=== PATIENT | female | born 1980 | race Caucasian/White ===

== ENCOUNTER 2017-03-25 17:34 | Emergency (ER) | payer MEDICAID, SELFPAY | END 2017-03-25 19:06 | disposition home or self-care (01) | PROVIDERS: Emergency Provider Emergency Medicine; Family Provider Emergency Medicine; Visit Provider Emergency Medicine | DX: G43.009 Migraine without aura, not intractable, without status migrainosus (principal); J01.10 Acute frontal sinusitis, unspecified; F17.210 Nicotine dependence, cigarettes, uncomplicated; D89.89 Other specified disorders involving the immune mechanism, not elsewhere classified; Z88.5 Allergy status to narcotic agent; Z88.2 Allergy status to sulfonamides; Z88.8 Allergy status to other drugs, medicaments and biological substances; Z79.899 Other long term (current) drug therapy | CPT/HCPCS: 96372; 99283 ==

== ENCOUNTER 2017-07-23 08:26 | Outpatient (RCR) | payer OTHER, MEDICAID, SELFPAY ==
--- NOTE | 2017-07-23 09:27 | HMH.PTOPEV ---
Rehab Outpatient Evaluation Rehab OP Evaluation Start: 07/23/17 09:15 Freq: Status: Active Protocol: Document 07/23/17 09:15 JEREMIAH (Rec: 07/23/17 09:27 JEREMIAH [id number]) Electronically Signed By Luis Durham, PT 07/23/17 09:15 Outpatient Therapy Subjective History Subjective History Pt presents with h/o chronic LBP and B hip pain for 5-10yrs , with exacerbation over the last 12-18 months. Pt reports 'very low' LBP that radiates into L glut area, and into R groin area. Pt also reports radicular s/s from L glut down posterior thigh to knee, and R groin s/s to anterior thigh/ knee area intermittently. Chief Complaint Pain Stiff Weakness Symptom Type Ache Throb Sharp Dull Symptoms Relieved By Rest/Positioning Heat Symptoms Aggravated By Sitting Standing Bending/Stooping Physical Activity Twisting Walking Prior Functional Limitations Lifting Housework Standing Sitting Walking Bending/Stooping Current Functional Limitations Lifting Housework Standing Sitting Walking Bending/Stooping Symptom Description Constant but Variable Level of pain today (0-10) 3 Pain scale - at its best (0-10) 3 Pain scale - at its worst (0-10) 8 Lumbopelvic Eval Posture Thoracic Spine Posture Standing Position Neutral Lumbar Spine Posture Standing Position Increased Lordosis Assistive device Assistive Devices None / NA Palapation tenderness bilateral thoracic spinal tenderness No lumbar spinal tenderness Yes: 1/4 paraspinal tenderness Yes: 1/4 buttock tenderness Yes: 3/4 tenderness over symphysis pubis No Accessory Movement T-spine Vertebrae Accessory Movements [facility] [place] that Elicit Symptoms L5 bilateral Range of Motion
== END 2017-07-23 08:27 | disposition home or self-care (01) ==
LOC: PT 08:26
PROVIDERS: Family Provider Emergency Medicine; PCP Emergency Medicine; Visit Provider Orthopaedic Surgery
DX: M54.5 Low back pain (principal); M70.62 Trochanteric bursitis, left hip

== ENCOUNTER → 2017-08-02 12:03 | Outpatient (POV) | payer OTHER, MEDICAID, SELFPAY | PROVIDERS: Family Provider Emergency Medicine; PCP Emergency Medicine; Visit Provider Specialist | DX: R20.0 Anesthesia of skin (principal); R20.2 Paresthesia of skin | CPT/HCPCS: 95886; 95909 ==

== ENCOUNTER → 2019-06-13 13:41 | Outpatient (POV) | payer OTHER, SELFPAY | PROVIDERS: Visit Provider Dermatology | DX: Z00.00 Encounter for general adult medical examination without abnormal findings (principal) ==

== ENCOUNTER 2019-10-10 14:08 | Emergency (ER) | payer OTHER, SELFPAY ==
[2019-10-10 14:31] VITALS: BP 137/66; PULSE 74; RESP 18; TEMP 37; O2SAT 96; BMI 29.2
--- NOTE | 2019-10-10 14:32 | HMH.EDUTC ---
[facility] [place]ression: Strep [place] Disposition: Home, Self-Care Condition on Discharge: Good Instructions: Strep Throat, DI for Strep Throat Additional Instructions: Drink plenty of fluids. Take tylenol or ibuprofen for pain or fever. Take the medications as directed. Follow up with your regular doctor. GO TO THE ER FOR ANY WORSENING SYMPTOMS Throw your toothbrush away and get a new one tomorrow. Prescriptions: Amoxicillin [Amoxicillin 500mg Tab] 500 mg PO TID 10 Days #30 tab Transmission Status: Received by [facility] Referrals: Kendall Andersen MD [Primary Care Provider] - Forms: Work/School Release Time of Disposition: 14:41 Medical Decision Making - Medical Records Medical records reviewed: No: I reviewed the patient's medical records. - Donny Inquiry Pt receiving controlled substance: No Vital Signs: 10/10/19 14:31 10/10/19 14:45 Temperature 98.6 F 98.6 F Temperature Source Oral Pulse Rate 74 Pulse Rate [Right Brachial] 74 Respiratory Rate 18 18 Blood Pressure 137/66 Blood Pressure [Right Arm] 137/66 Blood Pressure Mean [Right Arm] 89 Blood Pressure Source [Right Arm] Automatic Cuff Blood Pressure Position [Right Arm] Sitting 02 Sat by Pulse Oximetry 96 Oxygen Delivery Method Room Air - Lab Data Lab results reviewed: Yes: I reviewed the patient's lab results. Lab Results 10/10/19 14:35: Strep Scn Rapid Clinic Positive [place] [facility] [place] - General Stated complaint: sore throat Time Seen by Provider: 10/10/19 14:32 - History of Present Illness Provider Complaint: She c/o sore throat and feeling bad since yesterday. She denies any documented fever, but she has been chilling. - Related Data Previous Rx's Medication Instructions Recorded Amoxicillin [Amoxicillin 500mg Tab] 500 mg PO TID 10 Days #30 tab 10/10/19 Allergies Allergy/AdvReac Type Severity Reaction Status Date / Time duloxetine [From CYMBALTA] Allergy Unknown Verified 11/30/17 07:39 hydroxychloroquine Allergy Unknown Verified 11/30/17 07:39 [From PLAQUENIL] morphine [MORPHINE] Allergy Unknown Verified 11/30/17 07:39 Sulfa (Sulfonamide Allergy Unknown Verified 11/30/17 07:39 Antibiotics) [SULFA (SULFONAMIDE ANTIBIOTICS)] [facility] History - Hepatitis A Screen Attestation statement:: This patient has been screened for Hepatitis A risk factors. I have reviewed the patient's past medical history: Yes Medical History: Reports:: Anxiety, Gastroesophageal Reflux Disease(GERD), Kidney Stones, Migraine Denies:: Gastrointestinal Bleed, Renal Disease, Ulcer Other Medical History: Reports: Fibromyalgia, Other. Denies: Unexplained Bleeding Comment: fibromyalgia,vit b def,colitis,cyst on ovary Laterality Cases: Bilateral: Tonsillectomy Other Surgeries: Yes: , Other Amputation: No Fractures: No - Social History Smoking Status: Current every day smoker Tobacco Type: cigarettes # Packs/Day (cigarettes): 1 Alcohol Intake: never Alcohol Intake Frequency:: holidays/special occasions only Substance Use Type: denies use Occupational Status: employed - Psychiatric History Pschychiatric History:: Reports:: Anxiety Family Hx:: No significant family history ROS Obtained: Yes All systems reviewed & no additional complaints - Constitutional Constitutional: Reports chills, Denies fever(s), Reports poor appetite, Reports malaise - Eyes Eyes: Denies eye discharge - ENT Ears, Nose, Mouth, and Throat: Reports as per HPI - Cardiovascular Cardiovascular: Denies chest pain - Respiratory Respiratory: No chest congestion, No cough, No dyspnea, No coughing up blood, No stridor, No wheezing Physical Exam - General General appearance: alert, in no apparent distress - Head Head exam: atraumatic, normocephalic, normal inspection - Eye Eye exam: Present: normal appearance, PERRL, EOMI - ENT ENT exam: Present: normal oropharynx, m
[2019-10-10 14:39] LABS: UTC Strep Screen (Rapid) Positive (Negative)
[2019-10-10 14:45] VITALS: BP 137/66; PULSE 74; RESP 18; TEMP 37; O2SAT 96
== END 2019-10-10 14:48 | disposition home or self-care (01) ==
PROVIDERS: Emergency Provider Nurse Practitioner Family; PCP Emergency Medicine
DX: J02.0 Streptococcal pharyngitis (principal); F41.9 Anxiety disorder, unspecified; K21.9 Gastro-esophageal reflux disease without esophagitis; Z87.442 Personal history of urinary calculi; G43.709 Chronic migraine without aura, not intractable, without status migrainosus; F17.210 Nicotine dependence, cigarettes, uncomplicated; Z88.2 Allergy status to sulfonamides; Z88.5 Allergy status to narcotic agent; Z88.8 Allergy status to other drugs, medicaments and biological substances
CPT/HCPCS: 87880; 99201

== ENCOUNTER → 2019-12-28 11:44 | Outpatient (CLI) | payer OTHER, SELFPAY ==
--- NOTE | 2019-12-28 11:52 | XR_ITS ---
PROCEDURE: XR FOOT WT BEARING LT 3V CLINICAL INDICATION: pain COMPARISON: No exams were available for comparison FINDINGS: No fracture or dislocation. No lytic or blastic change. There is normal mineralization. The joint spaces are well-preserved. No significant degenerative/arthritic changes. No erosive changes evident. Other findings:None. IMPRESSION: No acute findings. Dictated by: Samson Sung MD 12/28/2019 13:45 Samson Sung MD in [place] 12/28/2019 13:45
--- NOTE | 2019-12-28 11:52 | XR_ITS ---
PROCEDURE: XR FOOT WT BEARING RT 3V CLINICAL INDICATION: pain COMPARISON: No exams were available for comparison FINDINGS: No fracture or dislocation. No lytic or blastic change. There is normal mineralization. The joint spaces are well-preserved. No significant degenerative/arthritic changes. No erosive changes evident. Other findings:None. IMPRESSION: No acute findings. Dictated by: Samson Sung MD 12/28/2019 13:45 Samson Sung MD in [place] 12/28/2019 13:45
== END ==
PROVIDERS: PCP Emergency Medicine; Visit Provider Podiatrist
DX: M79.672 Pain in left foot (principal); M79.671 Pain in right foot
CPT/HCPCS: 73630

== ENCOUNTER → 2020-01-02 16:25 | Outpatient (CLI) | payer OTHER, SELFPAY ==
[2020-01-02 17:18] LABS: Iron 45 ug/dL (37-170)
[2020-01-02 17:27] LABS: Total Iron Binding Capacity 371 ug/dL (265-497)
[2020-01-02 17:54] LABS: Ferritin 12.5 ng/ml (6.24-137)
== END ==
PROVIDERS: Visit Provider Specialist
DX: E83.10 Disorder of iron metabolism, unspecified (principal); M79.604 Pain in right leg; M79.605 Pain in left leg
CPT/HCPCS: 36415; 82728; 83540; 83550

== ENCOUNTER → 2020-01-15 08:33 | Outpatient (CLI) | payer OTHER, SELFPAY ==
--- NOTE | 2020-01-15 08:33 | MR_ITS ---
PROCEDURE: MR HEAD/BRAIN WO CON CLINICAL INDICATION: MS protocol MEMORY, BALANCE, AND CONCENTRATION ISSUES. HEADACHE. SYMPTOMS XYRS BUT HAS GOTTEN WORSE. PRIOR CT 03-21-17 COMPARISON: CT HDWO CT HEAD W/O CONTRAST from 03/21/2017 TECHNIQUE: Routine multiplanar multi echo sequences are performed without gadolinium enhancement. FINDINGS: No midline shift, mass effect, intracranial hemorrhage, or hydrocephalus. No evidence of acute infarction. The cerebellopontine angles, cerebellum, brainstem have an unremarkable appearance. No white matter lesions evident. The corpus callosum, pituitary, optic chiasm, and craniocervical junction have an unremarkable appearance. Additional MS sequences performed including sagittal FLAIR images and sagittal and axial 3D double inversion recovery images. No MS plaques identified. The upper cervical cord has an unremarkable appearance. No mastoid effusion or sinus air-fluid level. IMPRESSION: Negative MRI of the brain without contrast. No MRI evidence of multiple sclerosis. Dictated by: Samson Sung MD 01/16/2020 11:33 Samson Sung MD in [place] 01/16/2020 11:33
== END ==
PROVIDERS: PCP Emergency Medicine; Visit Provider Specialist
DX: G43.009 Migraine without aura, not intractable, without status migrainosus (principal); R41.3 Other amnesia; R42 Dizziness and giddiness; R47.89 Other speech disturbances
CPT/HCPCS: 70551

== ENCOUNTER → 2020-02-13 14:30 | Outpatient (CLI) | payer OTHER, SELFPAY ==
[2020-02-13 15:41] LABS: Basophils # 0.1 K/mm3 (0-0.2); Basophils % 0.9 % (0.1-2.0); Eosinophils # 0.4 K/mm3 (0.0-0.4); Eosinophils % 3.7 % (0.1-12.0); Hematocrit 41.6 % (37.0-47.0); Hemoglobin 13.9 g/dL (12.2-16.2); Lymphocytes # 3.5 K/mm3 (0.7-4.5); Lymphocytes % 29.2 % (10-50); Mean Corpuscular HGB Conc 33.3 g/dL (31.8-35.4); Mean Corpuscular Hemoglobin 32.6 pg (27.0-31.2); Mean Corpuscular Volume 97.7 fl (81-99); Mean Platelet Volume 7.6 fl (7.4-10.4); Monocytes # 0.5 K/mm3 (0.1-1.0); Monocytes % 4.5 % (1.7-9.3); Neutrophils # 7.3 K/mm3 (1.8-7.8); Neutrophils % 61.7 % (37.0-80.0); Platelet Count 405 K/mm3 (142-424); Red Blood Count 4.26 M/mm3 (4.20-5.40); Red Cell Distribution Width 13.1 % (11.5-17.5); White Blood Count 11.8 K/mm3 (4.8-10.8)
[2020-02-13 16:07] LABS: Chloride 103 mmol/L (98-107)
[2020-02-13 16:08] LABS: Potassium 4.4 mmoL/L (3.5-5.1); Sodium 138 mmol/L (136-145)
[2020-02-13 16:10] LABS: Alanine Aminotransferase 14 U/L (12-78); Anion Gap 14.4 mEq/L (5-15); Aspartate Amino Transferase 22 U/L (14-36); Blood Urea Nitrogen 11 mg/dl (7-17); Carbon Dioxide 25 mmol/L (22.0-30.0); Estimated Glomerular Filt Rate 112 ml/min (>60); GFR (African American) 135 ML/MIN (>60)
[2020-02-13 16:11] LABS: Albumin Level 4.6 g/dl (3.5-5.0); Albumin/Globulin Ratio 1.6 (1.1-1.8); Alkaline Phosphatase 57 U/L (38-126); Bilirubin,Total 0.2 mg/dl (0.2-1.3); Globulin 2.8 g/dL (1.3-3.2); Glucose 91 mg/dl (74-100); Total Protein,Serum 7.4 g/dl (6.3-8.2)
[2020-02-13 16:19] LABS: Erythrocyte Sedimentation Rate 15 mm/hr (0-20)
[2020-02-13 16:23] LABS: Intact Parathyroid Hormone 31.9 pg/mL (7.5-53.5)
[2020-02-13 16:42] LABS: Thyroid Stimulating Hormone 0.95 uIU/mL (0.465-4.68)
[2020-02-13 17:16] LABS: Vitamin B12 390 pg/mL (239-931)
[2020-02-13 17:17] LABS: Folate 7.91 ng/mL
[2020-02-15 11:47] LABS: Rapid Plasma Reagin Ab Titer Non Reactive (NonRea<1:1)
[2020-02-21 10:45] LABS: 1,25 Dihydroxy Vitamin D 29 pg/mL (.); 1,25-Dihydroxy, Vitamin D-2 <10 pg/mL (.); 1,25-Dihydroxy, Vitamin D-3 28 pg/mL (.)
== END ==
PROVIDERS: Visit Provider Nurse Practitioner Family
DX: G31.84 Mild cognitive impairment of uncertain or unknown etiology (principal); G25.81 Restless legs syndrome; R53.83 Other fatigue; Z68.29 Body mass index [BMI] 29.0-29.9, adult
CPT/HCPCS: 36415; 80053; 82607; 82652; 82746; 83970; 84443; 85025; 85651; 86592

== ENCOUNTER → 2020-05-20 08:21 | Outpatient (CLI) | payer OTHER, SELFPAY ==
[2020-05-20 09:37] LABS: Ferritin 19.4 ng/ml (6.24-137)
== END ==
PROVIDERS: Visit Provider Specialist
DX: E83.10 Disorder of iron metabolism, unspecified (principal)
CPT/HCPCS: 36415; 82728

== ENCOUNTER 2020-07-02 17:30 | Outpatient (RCR) | payer OTHER, SELFPAY ==
--- NOTE | 2020-06-04 18:04 | HMH.PTOPEV ---
Thank you for letting me participate in the care of this patient. PT Outpatient Evaluation Rehab PT Outpatient Evaluation Start: 06/04/20 17:34 Freq: Status: Active Protocol: Document 06/04/20 17:35 MARY JO (Rec: 06/04/20 18:04 PANDATAHIRA [id number]) Electronically Signed By Alfie Licea, PT 06/04/20 17:35 Outpatient Therapy Subjective History Subjective History This is the initial Physical Therapy evaluation for Donell Love. Pt is a 39 y/o female referred to PT for c/o chronic headaches. Pt reports daily chronic head aches for years . Pt reports most of her headaches occur in her [place] area but some are at the back of her head in suboccipital area. Pt does report her neck aches all the time especially at the cervicothoracic junction. Chief Complaint Pain Symptom Type Ache,Throb,Dull Symptoms Relieved By Rest/Positioning,OTC Meds Symptoms Aggravated By Physical Activity Prior Functional Limitations None Current Functional Limitations Driving Symptom Description Intermittent Level of pain today (0-10) 2 Pain scale - at its best (0-10) 0 Pain scale - at its worst (0-10) 5 Cervical Eval Palpation Cervical Muscles R Upper Trapezius,L Upper Trapezius Cervical/Thoracic Palpation Findings Trigger Point Posture Head/C-Spine Posture Sitting Position Flexed,C-Spine Flattened Passive Joint Mobility Cervical PIVM Dec: L C3/4 L C4/5 L C5/6 AROM Cervical Spine Extension Active Range of 40 Motion (degrees) Cervical Spine Flexion Active Range of 70 Motion (degrees) Cervical Spine Right Lateral Flexion 40 Active Range of Motion (degrees) Cervical Spine Left Lateral Flexion 40 Active Range of Motion (degrees) Cervical Spine Right Rotation Active 80 Range of Motion (degrees) Cervical Spine Left Rotation Active 80 Range of Motion (degrees) Special Test C-Spine Foraminal Compression (Spurling) Negative Left,Negative Right Test C-Spine Compression Test Negative Left,Negative Right Outpatient Therapy Assessment Impairments Problems/Impairmments Palpation Tenderness,Impaired Strength,Impaired Lifting, Impaired Household Care, Impaired Recreational
== END 2020-07-02 17:35 | disposition home or self-care (01) ==
LOC: PT 17:30
PROVIDERS: PCP Emergency Medicine; Visit Provider Specialist
DX: R51.9 Headache, unspecified (principal); G89.29 Other chronic pain
CPT/HCPCS: 20560; 97010; 97012; 97014; 97110; 97140; 97163; 97164; G0283

== ENCOUNTER 2020-07-04 16:44 | Emergency (ER) | payer OTHER, SELFPAY ==
[2020-07-04 17:05] VITALS: BP 130/76; PULSE 64; RESP 19; TEMP 36.6; O2SAT 99; BMI 27.8
--- NOTE | 2020-07-04 17:25 | HMH.EDUTC ---
[facility] [place] Clinical Impression: Otitis media Qualifiers: Otitis media type: unspecified Laterality: left Qualified Code(s): H66.92 - Otitis media, unspecified, left ear Disposition: Home, Self-Care Condition on Discharge: Good Instructions: Middle Ear Infection, Amoxicillin Additional Instructions: *Monitor Temp, Over the counter Motrin or Tylenol as directed/as needed Tylenol every 4 hours and Motrin every 6 hours (as long as your family doctor has told you that you can take it) for fever or pain. and straight to ER if unable to lower temp less than 101.0 after medication given *Warm salt water gargles may help to soothe the throat *Throat Lozenges *Warm fluids like tea with honey may help to soothe the throat *Sleep elevated *Humidifier/Vaporizer Take medication as prescribed Follow up IMMEDIATELY for new or worsening symptoms or no Noticeable improvement over the next 48-72 hours. 911 for difficulty breathing or swallowing Prescriptions: Amoxicillin [Amoxicillin 875MG Tab] 875 mg PO Q12H #20 tab Transmission Status: Pending to [facility] Fluticasone Propionate [Flonase 50mcg nasal spray 16gm] 1 spr NS DAILY #1 bottle Transmission Status: Pending to [facility] Referrals: Kendall Andersen MD [Primary Care Provider] - As needed Time of Disposition: 17:33 Medical Decision Making - Donny Inquiry Pt receiving controlled substance: No Donny was queried for this patient: No Vital Signs: 07/04/20 17:05 Temperature 97.9 F Temperature Source Oral Pulse Rate [Right] 64 Respiratory Rate 19 Blood Pressure [Right Arm] 130/76 Blood Pressure Mean [Right Arm] 94 Blood Pressure Source [Right Arm] Automatic Cuff 02 Sat by Pulse Oximetry 99 Oxygen Delivery Method Room Air [facility] [place] - General Stated complaint: ears pain Time Seen by Provider: 07/04/20 17:25 Mode of Arrival: Family Vehicle Source of Information: Patient Description of Symptoms (Recalled from Triage Doc. by RN): Pt c/o ear pain. Pt reports R ear started hurting about 1.5 wk ago. Now, her left ear began to hurt. Pt reports she does have a h/o of allergies, does not take any prescribed or OTC meds at this time. Pt reports some sinus congestion a few days ago. HEENT Symptoms (Recalled from RN notes): Yes Resp Symptoms (Recalled from RN notes): No Skin Symptoms (Recalled from RN notes): No MS Symptoms (Recalled from RN notes): No Functional Status (Recalled from RN notes): na - History of Present Illness Provider Complaint: Patient state that she has been having pain burning and pressure like feeling in both ears for around 2 weeks States that she thought it was allergies and has been watching it States for the last couple of days the pain in her left ear has continued to get worse so she came in today to get it checked - Related Data Home Medications Medication Instructions Recorded Confirmed Tizanidine HCl [Tizanidine HCl 4 mg PO HS 07/04/20 07/04/20 2mg] Tramadol HCl [Tramadol 50mg 50 mg PO DIRECTED 07/04/20 07/04/20 Tab] Trazodone HCl 100 mg PO QHS 07/04/20 07/04/20 Previous Rx's Medication Instructions Recorded Amoxicillin [Amoxicillin 875MG 875 mg PO Q12H #20 tab 07/04/20 Tab] Fluticasone Propionate [Flonase 1 spr NS DAILY #1 bottle 07/04/20 50mcg nasal spray 16gm] Allergies Allergy/AdvReac Type Severity Reaction Status Date / Time duloxetine [From CYMBALTA] Allergy Unknown Verified 05/20/20 15:15 hydroxychloroquine Allergy Unknown Verified 05/20/20 15:15 [From PLAQUENIL] morphine [MORPHINE] Allergy Unknown Verified 05/20/20 15:15 Sulfa (Sulfonamide Allergy Unknown Verified 05/20/20 15:15 Antibiotics) [SULFA (SULFONAMIDE ANTIBIOTICS)] - Worker's Comp Is this a Worker's Comp case?: No [facility] History - Hepatitis A Screen Drug use history?: No High risk sexual behaviors?: No History of sexually transmitted infection?: No Currently employed?:
[2020-07-04 17:45] VITALS: BP 130/74; PULSE 64; RESP 19; TEMP 36.6; O2SAT 99
== END 2020-07-04 17:53 | disposition home or self-care (01) ==
PROVIDERS: Emergency Provider Nurse Practitioner; PCP Emergency Medicine
DX: H66.92 Otitis media, unspecified, left ear (principal); K21.9 Gastro-esophageal reflux disease without esophagitis; F41.8 Other specified anxiety disorders; M79.7 Fibromyalgia; Z87.442 Personal history of urinary calculi; F17.210 Nicotine dependence, cigarettes, uncomplicated; Z88.2 Allergy status to sulfonamides; Z88.5 Allergy status to narcotic agent
CPT/HCPCS: 99202; G0463

== ENCOUNTER 2020-07-29 17:46 | Emergency (ER) | payer OTHER, SELFPAY ==
[2020-07-29 18:41] VITALS: RESP 14; TEMP 37; O2SAT 99; BMI 27.4
--- NOTE | 2020-07-29 19:05 | HMH.EDUTC ---
[facility] [place] Disposition Clinical Impression: Acute bronchitis Qualifiers: Bronchitis organism: unspecified organism Qualified Code(s): J20.9 - Acute bronchitis, unspecified Disposition: Home, Self-Care Condition on Discharge: Good Instructions: DI for Acute Bronchitis Additional Instructions: Drink plenty of fluids. Take tylenol or ibuprofen for pain or fever. Take the medications as directed. Follow up with your regular doctor. GO TO THE ER FOR ANY WORSENING SYMPTOMS Don't start the oral steroids until tomorrow, since you had the shot here today. The cough medication (promethazine dm) will make you drowsy, so don't drive or operate heavy machinery after taking it. Prescriptions: Promethazine/Dextromethorphan [Promethazine-Dm Syrup] 5 ml PO Q6HP PRN #180 syrup PRN Reason: Cough Transmission Status: Received by [facility] methylPREDNISolone [Medrol] 4 mg PO DIRECTED 6 Days #21 tab.ds.pk Transmission Status: Received by [facility] Benzonatate [Tessalon Perle 100mg Cap] 100 mg PO TIDP PRN #30 cap PRN Reason: Cough Transmission Status: Received by [facility] Azithromycin [Z-Eliu 250mg Tab*] 250 mg PO UD DOSE PK #6 tab Transmission Status: Received by [facility] Referrals: Kendall Andersen MD [Primary Care Provider] - Forms: Work/School Release Time of Disposition: 19:10 Medical Decision Making - Medical Records Medical records reviewed: No: I reviewed the patient's medical records. - Donny Inquiry Pt receiving controlled substance: No Vital Signs: 07/29/20 18:41 07/29/20 19:27 Temperature 98.6 F 98.5 F Temperature Source Oral Oral Pulse Rate 88 Respiratory Rate 14 16 Blood Pressure 130/81 02 Sat by Pulse Oximetry 99 Oxygen Delivery Method Room Air Room Air Orders (Tests/Meds): ED MEDICATIONS Discontinued Medications Generic Name Dose Route Start Last Admin Trade Name Freq PRN Reason Stop Dose Admin Ceftriaxone Sodium 1 gm 07/29/20 19:04 07/29/20 19:16 Ceftriaxone 1gm Vial IM 07/29/20 19:05 1 gm ONCE ONE Administration Protocol Lidocaine HCl 0 ml 07/29/20 19:04 07/29/20 19:16 Lidocaine 1% 5ml Pf Vial IM 07/29/20 19:05 5 ml ONCE ONE Administration Methylprednisolone Sodium Succinate 125 mg 07/29/20 19:04 07/29/20 19:17 Methylprednisolone Sod Succ 125mg Vial IM 07/29/20 19:05 125 mg ONCE ONE Administration [facility] [place] HPI - General Stated complaint: cough,sore throat,SOB,Weakness Time Seen by Provider: 07/29/20 18:55 Mode of Arrival: Ambulatory Source of Information: Patient Limitations: No Limitations Description of Symptoms (Recalled from Triage Doc. by RN): cough, sore throat, congestion, weakness/fatigue HEENT Symptoms (Recalled from RN notes): Yes Resp Symptoms (Recalled from RN notes): Yes Skin Symptoms (Recalled from RN notes): No MS Symptoms (Recalled from RN notes): No Functional Status (Recalled from RN notes): na - History of Present Illness Provider Complaint: She states that for the past 2 days she has had a cough, chest congestion, chest tightness, and she has felt very tired. She denies shortness of breath. She denies any fever or chills. - Related Data Home Medications Medication Instructions Recorded Confirmed Tizanidine HCl [Tizanidine HCl 4 mg PO HS 07/04/20 07/04/20 2mg] Tramadol HCl [Tramadol 50mg 50 mg PO DIRECTED 07/04/20 07/04/20 Tab] Trazodone HCl 100 mg PO QHS 07/04/20 07/04/20 Previous Rx's Medication Instructions Recorded Amoxicillin [Amoxicillin 875MG 875 mg PO Q12H #20 tab 07/04/20 Tab] Fluticasone Propionate [Flonase 1 spr NS DAILY #1 bottle 07/04/20 50mcg nasal spray 16gm] Azithromycin [Z-Eliu 250mg Tab*] 250 mg PO UD DOSE PK #6 tab 07/29/20 Benzonatate [Tessalon Perle 100mg 100 mg PO TIDP PRN #30 cap 07/29/20 Cap] Promethazine/Dextromethorphan 5 ml PO Q6HP PRN #180 syrup 07/29/20 [Promethazine-Dm Syrup] methylPR
[2020-07-29 19:27] VITALS: BP 130/81; PULSE 88; RESP 16; TEMP 36.9; O2SAT 99
== END 2020-07-29 19:28 | disposition home or self-care (01) ==
PROVIDERS: Emergency Provider Nurse Practitioner Family; PCP Emergency Medicine
DX: Z20.822 Contact with and (suspected) exposure to COVID-19 (principal); J20.9 Acute bronchitis, unspecified; F41.8 Other specified anxiety disorders; K21.9 Gastro-esophageal reflux disease without esophagitis; M79.7 Fibromyalgia; F17.210 Nicotine dependence, cigarettes, uncomplicated; Z88.2 Allergy status to sulfonamides; Z88.5 Allergy status to narcotic agent; Z79.899 Other long term (current) drug therapy
CPT/HCPCS: 96372; 99202; G0463; U0003

== ENCOUNTER 2020-08-04 17:21 | Emergency (ER) | payer OTHER, SELFPAY ==
[2020-08-04 17:30] VITALS: BP 113/59; PULSE 78; RESP 17; TEMP 36.8; O2SAT 96; BMI 27.4
--- NOTE | 2020-08-04 17:32 | XR_ITS ---
PROCEDURE: XR CHEST 2V CLINICAL HISTORY: cough COMPARISON: No exams were available for comparison FINDINGS: The cardiomediastinal silhouette and pulmonary vascularity are within normal limits. The lungs are clear without infiltrates, suspicious nodules, or pleural effusions. No acute bony abnormalities. IMPRESSION: No acute findings. Dictated by: Samson Sung MD 08/05/2020 06:22 Samson Sung MD in [place] 08/05/2020 06:22
--- NOTE | 2020-08-04 17:36 | HMH.EDUTC ---
[facility] – [place] Disposition Clinical Impression: Pneumonia Qualifiers: Pneumonia type: due to unspecified organism Laterality: left Lung location: upper lobe of lung Qualified Code(s): J18.9 - Pneumonia, unspecified organism Disposition: Home, Self-Care Condition on Discharge: Good Instructions: DI for Pneumonia -- Adult Additional Instructions: Follow up if not improving Prescriptions: Guaifenesin/Dextromethorphan [Mucinex Dm ER 1,200-60 mg Tab] 1 tab PO BID 10 Days #20 tab Transmission Status: Received by [facility] Cefdinir [Omnicef 300mg Capsule] 300 mg PO BID #20 cap Transmission Status: Received by [facility] predniSONE [Prednisone 20mg Tab] 20 mg PO BID 5 Days #10 tab Transmission Status: Received by [facility] Albuterol Sulfate [Proventil-HFA 90mcg/puff Inh] 2 puffs IH QIDP PRN 30 Days #1 inh PRN Reason: Wheezing Transmission Status: Received by [facility] Referrals: Kendall Andersen MD [Primary Care Provider] - Time of Disposition: 20:12 Medical Decision Making - Medical Records Medical records reviewed: Yes: I reviewed the patient's medical records. - Donny Inquiry Pt receiving controlled substance: No Vital Signs: 08/04/20 17:30 08/04/20 17:37 Temperature 98.2 F 98.2 F Temperature Source Oral Pulse Rate 78 Pulse Rate [Left] 78 Respiratory Rate 17 17 Blood Pressure 113/59 L Blood Pressure [Right Arm] 113/59 L Blood Pressure Mean [Right Arm] 77 Blood Pressure Source [Right Arm] Automatic Cuff Blood Pressure Position [Right Arm] Sitting 02 Sat by Pulse Oximetry 96 Oxygen Delivery Method Room Air Orders (Tests/Meds): ED MEDICATIONS Discontinued Medications Generic Name Dose Route Start Last Admin Trade Name Freq PRN Reason Stop Dose Admin Albuterol Sulfate 2 puffs 08/04/20 18:11 08/04/20 18:28 Albuterol-Hfa 90mcg/Puff Inhaler 8gm IH 09/03/20 18:10 2 puffs Q4HP PRN Administration Shortness Of Breath Ceftriaxone Sodium 1 gm 08/04/20 18:09 08/04/20 18:27 Ceftriaxone 1gm Vial IM 08/04/20 18:10 1 gm ONCE ONE Administration Protocol Lidocaine HCl 0 ml 08/04/20 18:09 08/04/20 18:27 Lidocaine 1% 5ml Pf Vial IM 08/04/20 18:10 2.1 ml ONCE ONE Administration Methylprednisolone Sodium Succinate 125 mg 08/04/20 18:09 08/04/20 18:28 Methylprednisolone Sod Succ 125mg Vial IM 08/04/20 18:10 125 mg ONCE ONE Administration Miscellaneous 1 unit 08/04/20 18:11 08/04/20 18:28 Aerochamber/Optihaler MC 08/04/20 18:12 1 unit ONCE ONE Administration - Radiology Data #1 Image(s): Chest Image Reviewed: Yes I reviewed the patient's radiology image Preliminary Findings: Abnormal (ROSE infiltrate ) [facility] – [place] HPI - General Stated complaint: Cough,SOB,Weakness Time Seen by Provider: 08/04/20 17:37 Mode of Arrival: Ambulatory Source of Information: Patient Limitations: No Limitations Description of Symptoms (Recalled from Triage Doc. by RN): chest congestion and cough x1 week HEENT Symptoms (Recalled from RN notes): No Resp Symptoms (Recalled from RN notes): Yes Skin Symptoms (Recalled from RN notes): No MS Symptoms (Recalled from RN notes): No Functional Status (Recalled from RN notes): wnl - History of Present Illness Provider Complaint: Patient has had ear pain, sinus congestion, drainage in her throat, cough for over a week. Was seen in [facility] on 07/29/20. COVID19 test was negative. She has not had a fever, nor loss of taste or smell. Has had some nausea, no vomiting. No diarrhea. Cough productive. Has had antibiotics, steroids and cough medicine but states she is feeling worse. She does smoke. She does not use inhalers at home. Onset (ago): day(s) (9) Location: chest Relieving factors: none Exacerbating factors: other (laying flat) Associated symptoms: cough, malaise, nausea/vomiting, shortness of breath Treatments prior to arrival: other (Rocephin, Depo Medrol, ZPack, Medrol Do
[2020-08-04 17:37] VITALS: BP 113/59; PULSE 78; RESP 17; TEMP 36.8; O2SAT 96
== END 2020-08-04 18:54 | disposition home or self-care (01) ==
PROVIDERS: Emergency Provider Physician Assistant; PCP Emergency Medicine
DX: J18.9 Pneumonia, unspecified organism (principal)
CPT/HCPCS: 71046; 96372; 99202; G0463

== ENCOUNTER → 2020-12-26 15:34 | Outpatient (CLI) | payer OTHER, SELFPAY ==
[2020-12-26 17:57] LABS: Ferritin 39.1 ng/ml (6.24-137)
== END ==
PROVIDERS: Visit Provider Specialist
DX: G25.81 Restless legs syndrome (principal)
CPT/HCPCS: 36415; 82728

== ENCOUNTER 2021-01-07 11:30 | Emergency (ER) | payer OTHER, SELFPAY ==
[2021-01-07 11:56] VITALS: BP 136/78; PULSE 87; RESP 19; TEMP 37; O2SAT 98; BMI 27.6
[2021-01-07 12:03] LABS: UTC Strep Screen (Rapid) Negative (Negative)
--- NOTE | 2021-01-07 12:12 | HMH.EDUTC ---
[facility] [place] Disposition Clinical Impression: Sinusitis Qualifiers: Sinusitis location: unspecified location Chronicity: unspecified Qualified Code(s): J32.9 - Chronic sinusitis, unspecified Disposition: Home, Self-Care Condition on Discharge: Good Instructions: Sinusitis, DI for Sinusitis Additional Instructions: *Monitor Temp, Over the counter Motrin or Tylenol as directed/as needed Tylenol every 4 hours and Motrin every 6 hours (as long as your family doctor has told you that you can take it) for fever or pain. and straight to ER if unable to lower temp less than 101.0 after medication given *Warm salt water gargles may help to soothe the throat *Throat Lozenges *Warm fluids like tea with honey may help to soothe the throat *Sleep elevated *Humidifier/Vaporizer *Flonase 2 sprays in each nostril daily but be aware that it may take 2-3 days before you notice improvement Take medication as prescribed Return if needed Your throat swab was sent for culture. Those results are typically sent to your primary care. Be sure to follow up in 2-3 days with your family doctor/primary care physician if no improvement so they can review those result and treat if necessary. If you don?t have a primary care doctor, I recommend you get one but in the mean time, you will have to return to a walk in clinic Follow up IMMEDIATELY for new or worsening symptoms or no Noticeable improvement over the next 48-72 hours. 911 for difficulty breathing or swallowing Prescriptions: Amoxicillin/Potassium Clav [Augmentin 875-125 Tablet] 1 tab PO Q12H 7 Days #14 tab Transmission Status: Received by [facility] Fluticasone Propionate [Flonase 50mcg nasal spray 16gm] 1 spr NS DAILY #1 each Transmission Status: Received by [facility] predniSONE [Prednisone 20mg Tab] 20 mg PO BID 5 Days #10 tab Transmission Status: Received by [facility] Benzonatate [Tessalon Perle 100mg Cap*] 100 mg PO TID PRN #30 cap PRN Reason: Cough Transmission Status: Received by [facility] Referrals: Kendall Andersen MD [Primary Care Provider] - As needed Time of Disposition: 12:20 Medical Decision Making - Donny Inquiry Pt receiving controlled substance: No Donny was queried for this patient: No Vital Signs: 01/07/21 11:56 01/07/21 12:17 Temperature 98.6 F 98.6 F Temperature Source Oral Pulse Rate 87 Pulse Rate [Left] 87 Respiratory Rate 19 19 Blood Pressure 136/78 Blood Pressure [Right Arm] 136/78 Blood Pressure Mean [Right Arm] 97 02 Sat by Pulse Oximetry 98 - Lab Data Lab results reviewed: Yes: I reviewed the patient's lab results. Lab Results 01/07/21 11:55: Strep Scn Rapid Clinic Negative Orders (Tests/Meds): ORDERS Category Date Time Status Strep Screen Confirmation Stat Micro 01/07/21 11:55 Received [facility] [place] HPI - General Stated complaint: s throat, cough, headache, congestion Time Seen by Provider: 01/07/21 12:12 Mode of Arrival: Ambulatory Source of Information: Patient Limitations: No Limitations Description of Symptoms (Recalled from Triage Doc. by RN): pt thinks she may have an upper respiratory infection. pt c/o sore throat, nasal congestoin and BLISS. HEENT Symptoms (Recalled from RN notes): Yes (sore throat, nasal congestion and BLISS) Resp Symptoms (Recalled from RN notes): No Skin Symptoms (Recalled from RN notes): No MS Symptoms (Recalled from RN notes): No Functional Status (Recalled from RN notes): na - History of Present Illness Provider Complaint: Patient states that she thinks she may have upper respiratory infection States that she has been having sinus pain and pressure along with drainage and sore throat States that she was tested for COVID yesterday and it was negative so when she still felt bad today she came in to get checked before it moved down to her lungs - Related Data Previous Rx's Medication Instructions Recorded tizanidine 2 mg tablet 4 mg PO HS #60 tab 12/26/20 tra
[2021-01-07 12:17] VITALS: BP 136/78; PULSE 87; RESP 19; TEMP 37
== END 2021-01-07 12:50 | disposition home or self-care (01) ==
PROVIDERS: Emergency Provider Nurse Practitioner; PCP Emergency Medicine
DX: J32.9 Chronic sinusitis, unspecified (principal); F41.8 Other specified anxiety disorders; K21.9 Gastro-esophageal reflux disease without esophagitis; M79.7 Fibromyalgia; F17.210 Nicotine dependence, cigarettes, uncomplicated; Z87.442 Personal history of urinary calculi; Z88.2 Allergy status to sulfonamides; Z88.8 Allergy status to other drugs, medicaments and biological substances
CPT/HCPCS: 87880; 99202; G0463

== ENCOUNTER → 2021-02-05 15:35 | Outpatient (CLI) | payer OTHER, SELFPAY ==
--- NOTE | 2021-02-05 15:35 | US_ITS ---
PROCEDURE: US TRANSVAGINAL CLINICAL INDICATION: Menorrhagia COMPARISON: US OBTV US OB transvaginal from 11/27/2017 FINDINGS: The uterus is normal in size and shows homogeneous echogenicity. The endometrial echo appears normal measuring 0.65 cm. There is a scar noted. There is a small nabothian cyst in the cervix. The right ovary is normal in size and there is a small amount of free fluid adjacent to the right ovary in the cul-de-sac. The left ovary is normal. IMPRESSION: Normal uterus and endometrium small amount of fluid around the right ovary and in the cul-de-sac Dictated by: Dr. Tha Byers MD 02/07/2021 15:49 Dr. Tha Byers MD in OV 02/07/2021 15:49
== END ==
PROVIDERS: PCP Emergency Medicine; Visit Provider Obstetrics & Gynecology
DX: N92.0 Excessive and frequent menstruation with regular cycle (principal)
CPT/HCPCS: 76830

== ENCOUNTER → 2021-03-11 17:19 | Outpatient (CLI) | payer OTHER, SELFPAY ==
[2021-03-11 18:29] LABS: Basophils # 0.1 K/mm3 (0-0.2); Basophils % 0.9 % (0.1-2.0); Eosinophils # 0.4 K/mm3 (0.0-0.4); Eosinophils % 3.4 % (0.1-12.0); Hematocrit 40.3 % (37.0-47.0); Hemoglobin 13.9 g/dL (12.2-16.2); Lymphocytes # 3.4 K/mm3 (0.7-4.5); Lymphocytes % 31.3 % (10-50); Mean Corpuscular HGB Conc 34.5 g/dL (31.8-35.4); Mean Corpuscular Hemoglobin 33.2 pg (27.0-31.2); Mean Corpuscular Volume 96.1 fl (81-99); Mean Platelet Volume 8.2 fl (7.4-10.4); Monocytes # 0.6 K/mm3 (0.1-1.0); Monocytes % 5.3 % (1.7-9.3); Neutrophils # 6.3 K/mm3 (1.8-7.8); Platelet Count 368 K/mm3 (142-424); Red Blood Count 4.19 M/mm3 (4.20-5.40); Red Cell Distribution Width 12.8 % (11.5-17.5); White Blood Count 10.7 K/mm3 (4.8-10.8)
[2021-03-11 22:25] LABS: Chloride 105 mmol/L (98-107); Potassium 4.1 mmoL/L (3.5-5.1); Sodium 139 mmol/L (136-145)
[2021-03-11 22:27] LABS: Blood Urea Nitrogen 15 mg/dl (7-17); Estimated Glomerular Filt Rate 111 ml/min (>60); GFR (African American) 135 ML/MIN (>60)
[2021-03-11 22:28] LABS: Alanine Aminotransferase 11 U/L (12-78); Albumin Level 4.6 g/dl (3.5-5.0); Albumin/Globulin Ratio 1.8 (1.1-1.8); Alkaline Phosphatase 51 U/L (38-126); Anion Gap 13.1 mEq/L (5-15); Aspartate Amino Transferase 23 U/L (14-36); Calcium 9.8 mg/dl (8.4-10.2); Carbon Dioxide 25 mmol/L (22.0-30.0); Globulin 2.6 g/dL (1.3-3.2); Glucose 92 mg/dl (74-100); Total Protein,Serum 7.2 g/dl (6.3-8.2)
[2021-03-11 22:30] LABS: Bilirubin,Total 0.1 mg/dl (0.2-1.3)
[2021-03-11 22:55] LABS: HCG,Quantitative < 2 mIU/ml (0-5.42)
== END ==
PROVIDERS: Visit Provider Obstetrics & Gynecology
DX: Z01.812 Encounter for preprocedural laboratory examination (principal); N93.8 Other specified abnormal uterine and vaginal bleeding
CPT/HCPCS: 36415; 80053; 84702; 85025; C9803; U0003; U0005

== ENCOUNTER 2021-03-13 07:03 | Day surgery (SDC) | payer OTHER, SELFPAY ==
[2021-03-10 09:02] VITALS: BMI 27.8
[2021-03-13] VITALS (10 sets, daily range): BP systolic 97–114; BP diastolic 45–72; PULSE 66–87; RESP 14–20; TEMP 36.6–37.2; O2SAT 94–100
--- NOTE | 2021-03-13 08:28 | P.PN_ITS ---
[facility] Anesthesia Checklist - Patient Identification Patient Identification: Arm Band, Verbal (Name & ) - Structural Data Admitted From: Home Planned Operative Procedure/s: Hysteroscopy Consent for Planned Operative Procedure(s) Verified: Yes Verified Documents: Surgical Consent - NPO Status Verified Time NPO: 00:00 - Chart Verification Results Verified: CBC, BMP, HCG - Additional verifications Anesthesia Reactions: No Hx Blood Transfusions: No Blood Transfusion Reaction: No - Cardiovascular Assessment Heart Sounds: S1 & S2 - Airway Assessment C-Spine Mobility Assessed: Yes TMJ Mobility Assessed: Yes Dentition: Good Dentition - Neurological Assessment Level of Consciousness: Awake, Alert, Appropriate - Anesthesia Plan Anesthesia Risk discussed: Yes ASA Class: II Anesthesia Type: General [facility] History Medical History: Reports:: Anxiety, Depression, Gastroesophageal Reflux Disease(GERD), Kidney Stones, Migraine Denies:: Cancer, Diabetes Mellitus Type 1, Diabetes Mellitus Type 2, Gastrointestinal Bleed, Internal Pacemaker, MRSA, Renal Disease, Seizures, Ulcer *Have you ever received a pneumonia vaccine?: No *Have you received a flu vaccine this season?: No Other Medical History: Reports: Anemia, Fibromyalgia, Other. Denies: Blood Transfusion Reaction, Unexplained Bleeding Anesthesia experience/problems:: no issues Laterality Cases: Bilateral: Tonsillectomy Other Surgeries: Yes: Colonoscopy, , Tubal Ligation, Other. No: Pacemaker Amputation: No Fractures: No - *Social History Last grade of school completed: High school graduate Smoking Status: Current every day smoker Tobacco Type: cigarettes # Packs/Day (cigarettes): 1 Alcohol Intake: current Alcohol Intake Frequency:: holidays/special occasions only Substance Use Type: denies use *Occupational Status:: employed Housing: house Household Members: family *Travel in the last 8 weeks: None - Psychiatric History Pschychiatric History:: Reports:: Anxiety, Depression Family Hx:: Cancer
--- NOTE | 2021-03-13 09:41 | HMH.ANESI ---
[facility] Anesthesia Record Part I Intake, IV Amount: 800 Estimated blood loss (mL): 5 Urine output (mL): 0 Blood Pressure: 112/66 SaO2: 94 Pulse Rate: 73 Respiratory Rate: 14 Temperature: 98 F Patient is:: Drowsy Stable to PACU at:: 09:38
--- NOTE | 2021-03-13 12:24 | HMH.OPNOTE ---
Date of procedure: 03/13/21 Pre-op Diagnosis:: Heavy menstrual bleeding Dysfunctional uterine bleeding Severe dysmenorrhea Post-op Diagnosis:: same Procedure performed:: D&C Hysteroscopy Novasure Endometrial Ablation Surgeon:: Sultana Sifuentes MD DIRECTOR OF PATIENT CARE:: Other Anesthesia: GETA Estimated blood loss (mL): 5 Operative findings:: grossly normal uterine cavity no polyps or submucosal fibroids noted Operative note:: The patient was taken to the OR where general anesthesia was administered without difficulty. She was prepped/draped in the normal sterile fashion in supine position. The cervix was dilated until hysteroscope could be accomodated. The hysteroscope was introduced through the cervix into the uterus and the cavity surveyed. No submucosal fibroids or endometrial polyps were observed within the cavity. Sharp curettage was performed and the specimen sent to pathology. The Novasure device was introduced into the uterus. The cavity length was measured at 5cm and width at 4cm, and the cavity assessment was successful. The Novasure was deployed and the endometrial ablation was completed in 75 seconds, and without complication. All instruments were removed from her vagina, she was awakened from anesthesia and taken to PACU in stable condition. Condition: stable Disposition: PACU Specimens:: endometrial curettings Complications:: none
--- NOTE | 2021-03-14 10:52 | P.PN_ITS ---
[facility] Anesthesia Record Part II Discharge Time: 10:17 Destination: Surgical Day Care (OP Surgery) PACU nurse assessment reviewed?: Yes Patient Condition:: Good Anesthesia Complications:: None Swallowing reflex intact?: Yes Cyanosis?: No Blood Pressure: 108/71 Pulse Rate: 66 Temperature: 98 F Mental Status: Alert & Oriented Pain level:: 1 Nausea and/or vomitting:: None Intake, IV Amount: 0
[2021-03-14 10:53] VITALS: BP 108/71; PULSE 66; TEMP 36.6
== END 2021-03-13 10:48 | disposition home or self-care (01) ==
LOC: OR 07:03
PROVIDERS: PCP Emergency Medicine; Visit Provider Obstetrics & Gynecology
PROC: (CPT 58563; principal; 2021-03-13 08:30)
DX: N92.0 Excessive and frequent menstruation with regular cycle (principal); N94.6 Dysmenorrhea, unspecified; N93.8 Other specified abnormal uterine and vaginal bleeding; Z98.51 Tubal ligation status; F41.9 Anxiety disorder, unspecified; F32.A Depression, unspecified; K21.9 Gastro-esophageal reflux disease without esophagitis; G43.909 Migraine, unspecified, not intractable, without status migrainosus; Z87.442 Personal history of urinary calculi; D64.9 Anemia, unspecified; M79.7 Fibromyalgia; Z80.9 Family history of malignant neoplasm, unspecified
CPT/HCPCS: 58563; 96374; J2405

== ENCOUNTER 2021-03-28 09:44 | Emergency (ER) | payer OTHER, SELFPAY ==
[2021-03-28 10:20] VITALS: BP 101/68; PULSE 74; RESP 20; TEMP 36.6; O2SAT 98; BMI 27.4
--- NOTE | 2021-03-28 10:39 | HMH.EDUTC ---
[facility] [place] Clinical Impression: Acute bronchitis Qualifiers: Bronchitis organism: unspecified organism Qualified Code(s): J20.9 - Acute bronchitis, unspecified Sinusitis Qualifiers: Sinusitis location: unspecified location Chronicity: acute Recurrence: non-recurrent Qualified Code(s): J01.90 - Acute sinusitis, unspecified Disposition: Home, Self-Care Condition on Discharge: Good Instructions: DI for Sinusitis, DI for Acute Bronchitis Additional Instructions: Drink plenty of fluids. Take tylenol or ibuprofen for pain or fever. Take the medications as directed. Follow up with your regular doctor. GO TO THE ER FOR ANY WORSENING SYMPTOMS Quarantine until you know the results of your covid-19 test. If it is positive, the health department should call you and give you further instructions about your length of Quarantine and other things. Notify your school or workplace of your results and follow their instructions regarding return to work/school. Don't start the oral steroids until tomorrow, since you had the shot here today. The cough medication (promethazine dm) will make you drowsy, so don't drive or operate heavy machinery after taking it. Prescriptions: Promethazine/Dextromethorphan [Promethazine-Dm Syrup] 5 ml PO Q6HP PRN #240 ml PRN Reason: Cough Transmission Status: Received by [facility] methylPREDNISolone [Medrol] 4 mg PO DIRECTED 6 Days #21 packet Transmission Status: Received by [facility] guaiFENesin [Mucinex 600mg tablet] 1 - 2 tab PO BIDP PRN #30 tab PRN Reason: Congestion Transmission Status: Received by [facility] Cefdinir [Omnicef 300mg Capsule] 300 mg PO BID #20 cap Transmission Status: Received by [facility] Referrals: Kendall Andersen MD [Primary Care Provider] - Forms: Work/School Release Time of Disposition: 11:26 Medical Decision Making - Medical Records Medical records reviewed: No: I reviewed the patient's medical records. - Donny Inquiry Pt receiving controlled substance: No Vital Signs: 03/28/21 10:20 03/28/21 11:29 Temperature 97.9 F 97.9 F Temperature Source Oral Pulse Rate 74 Pulse Rate [Right Brachial] 74 Respiratory Rate 20 20 Blood Pressure 101/68 L Blood Pressure [Right Arm] 101/68 L Blood Pressure Mean [Right Arm] 79 Blood Pressure Source [Right Arm] Automatic Cuff Blood Pressure Position [Right Arm] Sitting 02 Sat by Pulse Oximetry 98 Oxygen Delivery Method Room Air - Lab Data Lab results reviewed: Yes: I reviewed the patient's lab results. Orders (Tests/Meds): ED MEDICATIONS Discontinued Medications Generic Name Dose Route Start Last Admin Trade Name Subha PRN Reason Stop Dose Admin Ceftriaxone Sodium 1 gm 03/28/21 11:18 03/28/21 11:25 Ceftriaxone 1gm Vial IM 03/28/21 11:19 1 gm ONCE ONE Administration Lidocaine HCl 0 ml 03/28/21 11:18 03/28/21 11:25 Lidocaine 1% 5ml Pf Vial IM 03/28/21 11:19 2 ml ONCE ONE Administration Methylprednisolone Sodium Succinate 125 mg 03/28/21 11:18 03/28/21 11:25 Methylprednisolone Sod Succ 125mg Vial IM 03/28/21 11:19 125 mg ONCE ONE Administration [facility] - General Stated complaint: sore thorat, cough, soa, congestion Time Seen by Provider: 03/28/21 10:39 Mode of Arrival: Ambulatory Source of Information: Patient Limitations: No Limitations Description of Symptoms (Recalled from Triage Doc. by RN): PATIENT C/O COUGH, CHEST AND NASAL CONGESTION X 2 WEEKS HEENT Symptoms (Recalled from RN notes): No Resp Symptoms (Recalled from RN notes): Yes Skin Symptoms (Recalled from RN notes): No MS Symptoms (Recalled from RN notes): No Functional Status (Recalled from RN notes): WNL - History of Present Illness Provider Complaint: She states that for the past 1 week she has had sinus congestion and a cough. Last night, her chest tightness and cough worsened. She is having a productive cough with greenish
[2021-03-28 11:29] VITALS: BP 101/68; PULSE 74; RESP 20; TEMP 36.6; O2SAT 98
== END 2021-03-28 11:40 | disposition home or self-care (01) ==
PROVIDERS: Emergency Provider Nurse Practitioner Family; PCP Emergency Medicine
DX: J20.9 Acute bronchitis, unspecified (principal); J01.90 Acute sinusitis, unspecified; F41.8 Other specified anxiety disorders; K21.9 Gastro-esophageal reflux disease without esophagitis; F17.210 Nicotine dependence, cigarettes, uncomplicated; Z20.822 Contact with and (suspected) exposure to COVID-19
CPT/HCPCS: 96372; 99202; C9803; G0463; U0003; U0005

== ENCOUNTER 2021-04-06 15:16 | Emergency (ER) | payer OTHER, SELFPAY ==
[2021-04-06 16:00] VITALS: BP 126/78; PULSE 87; RESP 19; TEMP 37.2; O2SAT 98; BMI 25.8
[2021-04-06 16:28] LABS: UTC Strep Screen (Rapid) Negative (Negative)
[2021-04-06 16:29] LABS: UTC Influenza A Antigen Negative (Negative); UTC Influenza B Antigen Negative (Negative)
--- NOTE | 2021-04-06 16:32 | HMH.EDUTC ---
[facility] [place] Dis[place] Clinical Impression: Allergic rhinitis Qualifiers: Allergic rhinitis trigger: other Allergic rhinitis seasonality: seasonal Qualified Code(s): J30.89 - Other allergic rhinitis Disposition: Home, Self-Care Condition on Discharge: Good Instructions: DI for Allergic Rhinitis Additional Instructions: No sign of a bacterial infection. Likely viral. Viruses can take 7-14 days to run their course. Nasal saline and bulb syringe or nose Renee to remove nasal drainage to help with nasal congestion. Hard to eat, drink, sleep with nasal congestion so important to keep this cleaned out. Monitor temp. Tylenol or Motrin as needed for pain or fever Encourage fluids, water, Gatorade, Powerade, Pedialyte if /toddler/child Warm salt water gargles Warm fluids Sore throat lozenges Sleep elevated Humidifier/vaporizer Follow-up immediately for new or worsening symptoms or no noticeable improvement over the next 48-72 hours. covid swab was sent to lab, call tomorrow for results. self isolate until test results are known to be negative Prescriptions: Fluticasone Propionate [Flonase 50mcg nasal spray 16gm] 1 spr NS DAILY 14 Days #9.9 ml Prescription Printed predniSONE [Prednisone 20mg Tab] 20 mg PO BID 3 Days #6 tab Prescription Printed Referrals: Kendall Andersen MD [Primary Care Provider] - Time of Disposition: 16:45 Medical Decision Making - Donny Inquiry Pt receiving controlled substance: No Vital Signs: 04/06/21 16:00 Temperature 98.9 F Temperature Source Oral Pulse Rate [Right Brachial] 87 Respiratory Rate 19 Blood Pressure [Right Arm] 126/78 Blood Pressure Mean [Right Arm] 94 Blood Pressure Source [Right Arm] Automatic Cuff Blood Pressure Position [Right Arm] Sitting 02 Sat by Pulse Oximetry 98 Oxygen Delivery Method Room Air - Lab Data Lab Results 04/06/21 16:01: Influenza Type A Ag Negative, Influenza Type B Ag Negative 04/06/21 16:01: Strep Scn Rapid Clinic Negative Orders (Tests/Meds): ORDERS Category Date Time Status Strep Screen Confirmation Stat Micro 04/06/21 16:01 Received [facility] [place] HPI - General Chief complaint: Urgent [facility] Stated complaint: sore throat, cough, BLISS, maricarmen Time Seen by Provider: 04/06/21 16:32 Mode of Arrival: Ambulatory Source of Information: Patient Limitations: No Limitations Description of Symptoms (Recalled from Triage Doc. by RN): PATIENT C/O CONGESTION, COUGH, WEAKNESS, AND HEADACHE X 2 WEEKS. REPORTS SHE JUST FINISHED A Z-PACK HEENT Symptoms (Recalled from RN notes): Yes Resp Symptoms (Recalled from RN notes): Yes Skin Symptoms (Recalled from RN notes): No MS Symptoms (Recalled from RN notes): No Functional Status (Recalled from RN notes): WNL - History of Present Illness Provider Complaint: 40 yr old female presents for nasal congestion, clear runny nose and cough deep in chest. has finsihed zpak and steroids - Related Data Home Medications Medication Instructions Recorded Confirmed ferrous sulfate 140 mg (45 mg 140 mg PO BID tab 01/20/21 03/28/21 iron) tablet,extended release Previous Rx's Medication Instructions Recorded tizanidine 2 mg tablet 4 mg PO HS #60 tab 12/26/20 trazodone 50 mg tablet 100 mg PO QHS #60 tab 12/26/20 Cefdinir [Omnicef 300mg Capsule] 300 mg PO BID #20 cap 03/28/21 Promethazine/Dextromethorphan 5 ml PO Q6HP PRN #240 ml 03/28/21 [Promethazine-Dm Syrup] guaiFENesin [Mucinex 600mg tablet] 1 - 2 tab PO BIDP PRN #30 tab 03/28/21 methylPREDNISolone [Medrol] 4 mg PO DIRECTED 6 Days #21 03/28/21 packet Fluticasone Propionate [Flonase 1 spr NS DAILY 14 Days #9.9 ml 04/06/21 50mcg nasal spray 16gm] predniSONE [Prednisone 20mg 20 mg PO BID 3 Days #6 tab 04/06/21 Tab] Allergies Allergy/AdvReac Type Severity Reaction Status Date / Time duloxetine [From CYMBALTA] Allergy Unknown Verified 03/12/21 15:34 hydroxychloroquine Allergy Unknown Verified 03/12/21 15:34 [From
[2021-04-06 17:05] VITALS: BP 126/78; PULSE 87; RESP 19; TEMP 37.2; O2SAT 98
== END 2021-04-06 17:14 | disposition home or self-care (01) ==
PROVIDERS: Emergency Provider Nurse Practitioner Family; PCP Emergency Medicine
DX: J30.89 Other allergic rhinitis (principal); F41.8 Other specified anxiety disorders; K21.9 Gastro-esophageal reflux disease without esophagitis; M79.7 Fibromyalgia
CPT/HCPCS: 87804; 87880; 99203; C9803; G0463; U0003; U0005

== ENCOUNTER 2021-06-20 11:05 | Emergency (ER) | payer OTHER, SELFPAY ==
[2021-06-20 12:00] VITALS: BP 118/75; PULSE 67; RESP 18; TEMP 36.7; O2SAT 98; BMI 27.3
--- NOTE | 2021-06-20 12:32 | HMH.EDUTC ---
[facility] [place] Disposition Clinical Impression: Sinusitis Qualifiers: Sinusitis location: unspecified location Chronicity: unspecified Qualified Code(s): J32.9 - Chronic sinusitis, unspecified Disposition: Home, Self-Care Condition on Discharge: Good Instructions: Sinusitis, DI for Sinusitis, Amoxicillin and Clavulanic Acid, Methylprednisolone Additional Instructions: *Monitor Temp, Over the counter Motrin or Tylenol as directed/as needed Tylenol every 4 hours and Motrin every 6 hours (as long as your family doctor has told you that you can take it) for fever or pain. and straight to ER if unable to lower temp less than 101.0 after medication given *Warm salt water gargles may help to soothe the throat *Throat Lozenges *Warm fluids like tea with honey may help to soothe the throat *Sleep elevated *Humidifier/Vaporizer *Flonase 2 sprays in each nostril daily but be aware that it may take 2-3 days before you notice improvement Take medication as prescribed Return if needed Follow up IMMEDIATELY for new or worsening symptoms or no Noticeable improvement over the next 48-72 hours. 911 for difficulty breathing or swallowing Prescriptions: Amoxicillin/Potassium Clav [Amox-Clav 875-125 mg Tablet] 1 tab PO BID #14 tab Transmission Status: Pending to [facility] predniSONE [Deltasone 10mg tablet] 10 mg PO BID 5 Days #10 tab Transmission Status: Pending to [facility] Fluticasone Propionate [Flonase 50mcg nasal spray 16gm] 1 spr NS DAILY #1 each Transmission Status: Pending to [facility] Referrals: Kendall Andersen MD [Primary Care Provider] - As needed Time of Disposition: 12:39 Medical Decision Making - Donny Inquiry Pt receiving controlled substance: No Donny was queried for this patient: No Vital Signs: 06/20/21 12:00 Temperature 98.1 F Temperature Source Oral Pulse Rate [Right Brachial] 67 Respiratory Rate 18 Blood Pressure [Right Arm] 118/75 Blood Pressure Mean [Right Arm] 89 Blood Pressure Source [Right Arm] Automatic Cuff Blood Pressure Position [Right Arm] Sitting 02 Sat by Pulse Oximetry 98 Oxygen Delivery Method Room Air [facility] [place] HPI - General Stated complaint: h/a, cough, congestion Time Seen by Provider: 06/20/21 12:32 Mode of Arrival: Ambulatory Source of Information: Patient Limitations: No Limitations Description of Symptoms (Recalled from Triage Doc. by RN): PATIENT C/O SINUS CONGESTION, HEADACHE, AND RIGHT EAR PAIN X 1 WEEK HEENT Symptoms (Recalled from RN notes): No Resp Symptoms (Recalled from RN notes): No Skin Symptoms (Recalled from RN notes): No MS Symptoms (Recalled from RN notes): No Functional Status (Recalled from RN notes): WNL - History of Present Illness Provider Complaint: Patient states that she has been having sinus congestion and pressure, pain in right ear, headache on and off and feeling of pressure in her ear States that she has migraines but is taking medication for them and feels like this is coming from her sinuses - Related Data Home Medications Medication Instructions Recorded Confirmed ferrous sulfate 140 mg (45 mg 140 mg PO BID tab 01/20/21 03/28/21 iron) tablet,extended release Previous Rx's Medication Instructions Recorded tizanidine 2 mg tablet 4 mg PO HS #60 tab 12/26/20 trazodone 50 mg tablet 100 mg PO QHS #60 tab 12/26/20 Cefdinir [Omnicef 300mg Capsule] 300 mg PO BID #20 cap 03/28/21 Promethazine/Dextromethorphan 5 ml PO Q6HP PRN #240 ml 03/28/21 [Promethazine-Dm Syrup] guaiFENesin [Mucinex 600mg tablet] 1 - 2 tab PO BIDP PRN #30 tab 03/28/21 methylPREDNISolone [Medrol] 4 mg PO DIRECTED 6 Days #21 03/28/21 packet Fluticasone Propionate [Flonase 1 spr NS DAILY 14 Days #9.9 ml 04/06/21 50mcg nasal spray 16gm] Loratadine [Claritin 10mg 10 mg PO DAILY #30 tab 04/06/21 Tablet] predniSONE [Prednisone 20mg 20 mg PO BID 3 Days #6 tab 04/06/21 Tab] dextroamphetamine-amphetamine ER 10 mg PO DAILY #30 cap
[2021-06-20 12:36] VITALS: BP 118/75; PULSE 67; RESP 18; TEMP 36.7; O2SAT 98
== END 2021-06-20 12:53 | disposition home or self-care (01) ==
PROVIDERS: Emergency Provider Nurse Practitioner; PCP Emergency Medicine
DX: J32.9 Chronic sinusitis, unspecified (principal); Z88.2 Allergy status to sulfonamides; Z88.5 Allergy status to narcotic agent
CPT/HCPCS: 99212; G0463

== ENCOUNTER → 2021-06-26 16:51 | Outpatient (CLI) | payer OTHER, SELFPAY ==
[2021-06-26 18:36] LABS: Ferritin 40.8 ng/ml (6.24-137)
== END ==
PROVIDERS: Visit Provider Nurse Practitioner Family
DX: E83.10 Disorder of iron metabolism, unspecified (principal); G25.81 Restless legs syndrome
CPT/HCPCS: 36415; 82728

== ENCOUNTER 2021-07-06 16:47 | Emergency (ER) | payer OTHER, SELFPAY ==
[2021-07-06 17:49] VITALS: BP 118/66; PULSE 91; RESP 18; TEMP 36.9; O2SAT 97; BMI 25.4
[2021-07-06 17:54] LABS: UTC Influenza A Antigen Negative (Negative); UTC Influenza B Antigen Negative (Negative)
--- NOTE | 2021-07-06 18:01 | HMH.EDUTC ---
[facility] [place] Disposition Clinical Impression: Influenza A Disposition: Home, Self-Care Condition on Discharge: Good Instructions: Influenza, DI for Influenza -- Adult Additional Instructions: Drink plenty of fluids. Take tylenol or ibuprofen for pain or fever. Take the medications as directed. Follow up with your regular doctor. GO TO THE ER FOR ANY WORSENING SYMPTOMS Prescriptions: methylPREDNISolone [Medrol] 4 mg PO DIRECTED 6 Days #21 packet Transmission Status: Received by [facility] Oseltamivir Phosphate [Tamiflu 75mg Capsule] 75 mg PO BID #10 cap Transmission Status: Received by [facility] Azithromycin [Z-Eliu 250mg Tab*] 250 mg PO UD DOSE PK #6 tab Transmission Status: Received by [facility] Referrals: Kendall Andersen MD [Primary Care Provider] - Forms: Work/School Release Time of Disposition: 18:45 Medical Decision Making - Medical Records Medical records reviewed: No: I reviewed the patient's medical records. - Donny Inquiry Pt receiving controlled substance: No Vital Signs: 07/06/21 17:49 07/06/21 19:08 Temperature 98.5 F 98.5 F Temperature Source Oral Pulse Rate 91 H Pulse Rate [Left] 91 H Respiratory Rate 18 18 Blood Pressure 118/66 Blood Pressure [Right Arm] 118/66 Blood Pressure Mean [Right Arm] 83 02 Sat by Pulse Oximetry 97 - Lab Data Lab results reviewed: Yes: I reviewed the patient's lab results. Lab Results 07/06/21 17:35: Group A Strep Rapid Negative 07/06/21 17:45: Influenza Type A Ag Negative, Influenza Type B Ag Negative Orders (Tests/Meds): ORDERS Category Date Time Status Strep Screen Confirmation Stat Micro 07/06/21 17:35 Received [facility] [place] HPI - General Stated complaint: BLISS sore throat, head congestion Time Seen by Provider: 07/06/21 18:01 Mode of Arrival: Ambulatory Source of Information: Patient Limitations: No Limitations Description of Symptoms (Recalled from Triage Doc. by RN): pt c/o sinus/chest congestion, cough, BLISS and a sore throat. HEENT Symptoms (Recalled from RN notes): Yes Resp Symptoms (Recalled from RN notes): Yes Skin Symptoms (Recalled from RN notes): No MS Symptoms (Recalled from RN notes): No Functional Status (Recalled from RN notes): wnl - History of Present Illness Provider Complaint: She states that she has felt bad since this morning. She has fever/chills body aches, and a cough. - Related Data Home Medications Medication Instructions Recorded Confirmed ferrous sulfate 140 mg (45 mg 140 mg PO BID tab 01/20/21 06/26/21 iron) tablet,extended release Previous Rx's Medication Instructions Recorded dextroamphetamine-amphetamine ER 10 mg PO DAILY #30 cap 05/30/21 10 mg 24hr capsule,extend release Amoxicillin/Potassium Clav 1 tab PO BID #14 tab 06/20/21 [Amox-Clav 875-125 mg Tablet] Fluticasone Propionate [Flonase 1 spr NS DAILY #1 each 06/20/21 50mcg nasal spray 16gm] tizanidine 2 mg tablet 4 mg PO HS #60 tab 06/26/21 trazodone 50 mg tablet 100 mg PO QHS #60 tab 06/26/21 Azithromycin [Z-Eliu 250mg Tab*] 250 mg PO UD DOSE PK #6 tab 07/06/21 Oseltamivir Phosphate [Tamiflu 75 mg PO BID #10 cap 07/06/21 75mg Capsule] methylPREDNISolone [Medrol] 4 mg PO DIRECTED 6 Days #21 07/06/21 packet Allergies Allergy/AdvReac Type Severity Reaction Status Date / Time duloxetine [From CYMBALTA] Allergy Unknown Verified 06/26/21 16:03 hydroxychloroquine Allergy Unknown Verified 06/26/21 16:03 [From PLAQUENIL] morphine [MORPHINE] Allergy Unknown Verified 06/26/21 16:03 Sulfa (Sulfonamide Allergy Unknown Verified 06/26/21 16:03 Antibiotics) [SULFA (SULFONAMIDE ANTIBIOTICS)] - Worker's Comp Is this a Worker's Comp case?: No [facility] History - Hepatitis A Screen Drug use history?: No High risk sexual behaviors?: No History of sexually transmitted infection?: No Currently employed?: No Childcare worker?: No Do you have indoor plu
[2021-07-06 18:29] LABS: Strep Scrn Group A (Rapid) Negative (Negative)
[2021-07-06 19:08] VITALS: BP 118/66; PULSE 91; RESP 18; TEMP 36.9
== END 2021-07-06 19:09 | disposition home or self-care (01) ==
PROVIDERS: Emergency Provider Nurse Practitioner Family; PCP Emergency Medicine
DX: J10.1 Influenza due to other identified influenza virus with other respiratory manifestations (principal)
CPT/HCPCS: 87430; 87804; 99212; G0463

== ENCOUNTER 2021-08-02 19:39 | Emergency (ER) | payer OTHER, SELFPAY ==
[2021-08-02 19:54] VITALS: BP 119/66; PULSE 86; RESP 18; TEMP 37.1; O2SAT 96; BMI 25.7
[2021-08-02 20:15] LABS: UTC Influenza A Antigen Negative (Negative); UTC Influenza B Antigen Negative (Negative)
--- NOTE | 2021-08-02 20:21 | HMH.EDUTC ---
[facility] [place] Clinical Impression: Otitis media Qualifiers: Otitis media type: suppurative Chronicity: acute Laterality: bilateral Recurrence: non-recurrent Spontaneous tympanic membrane rupture: without spontaneous rupture Qualified Code(s): H66.003 - Acute suppurative otitis media without spontaneous rupture of ear drum, bilateral Pharyngitis Qualifiers: Pharyngitis/tonsillitis etiology: unspecified etiology Qualified Code(s): J02.9 - Acute pharyngitis, unspecified Disposition: Home, Self-Care Condition on Discharge: Good Instructions: Middle Ear Infection, DI for Pharyngitis/Tonsillopharyngitis -- Adult Additional Instructions: Drink plenty of fluids. Take tylenol or ibuprofen for pain or fever. Take the medications as directed. Follow up with your regular doctor. GO TO THE ER FOR ANY WORSENING SYMPTOMS Prescriptions: Promethazine/Dextromethorphan [Promethazine-Dm Syrup] 5 ml PO Q6HP PRN #240 ml PRN Reason: Cough Transmission Status: Pending to [facility] Amoxicillin [Amoxicillin 875MG Tab] 875 mg PO Q12H #20 tab Transmission Status: Pending to [facility] methylPREDNISolone [Medrol] 4 mg PO DIRECTED 6 Days #21 packet Transmission Status: Pending to [facility] Referrals: Kendall Andersen MD [Primary Care Provider] - Forms: Work/School Release Time of Disposition: 20:36 Medical Decision Making - Medical Records Medical records reviewed: No: I reviewed the patient's medical records. - Donny Inquiry Pt receiving controlled substance: No Vital Signs: 08/02/21 19:54 Temperature 98.7 F Temperature Source Oral Pulse Rate [Left Radial] 86 Respiratory Rate 18 Blood Pressure [Right Arm] 119/66 Blood Pressure Mean [Right Arm] 83 02 Sat by Pulse Oximetry 96 - Lab Data Lab results reviewed: Yes: I reviewed the patient's lab results. Lab Results 08/02/21 19:53: Group A Strep Rapid Negative 08/02/21 19:58: Influenza Type A Ag Negative, Influenza Type B Ag Negative Orders (Tests/Meds): ED MEDICATIONS Discontinued Medications Generic Name Dose Route Start Last Admin Trade Name Freq PRN Reason Stop Dose Admin Methylprednisolone Sodium Succinate 125 mg 08/02/21 20:21 08/02/21 20:27 Methylprednisolone Sod Succ 125mg Vial IM 08/02/21 20:22 125 mg ONCE ONE Administration ORDERS Category Date Time Status Strep Screen Confirmation Stat Micro 08/02/21 19:53 Received [facility] [place]PI - General Stated complaint: ear pain Time Seen by Provider: 08/02/21 20:21 Mode of Arrival: Ambulatory Source of Information: Patient Description of Symptoms (Recalled from Triage Doc. by RN): pt c/o bilateral ear pain. states that it comes and goes in both ears. pt c/o of cough that started today, and c/o sore throat that began last week. HEENT Symptoms (Recalled from RN notes): Yes Resp Symptoms (Recalled from RN notes): Yes Skin Symptoms (Recalled from RN notes): No MS Symptoms (Recalled from RN notes): No Functional Status (Recalled from RN notes): wnl - History of Present Illness Provider Complaint: She c/o sore throat, bilateral ear pain, and a cough for the past 3 days. - Related Data Home Medications Medication Instructions Recorded Confirmed ferrous sulfate 140 mg (45 mg 140 mg PO BID tab 01/20/21 06/26/21 iron) tablet,extended release Previous Rx's Medication Instructions Recorded dextroamphetamine-amphetamine ER 10 mg PO DAILY #30 cap 05/30/21 10 mg 24hr capsule,extend release Amoxicillin/Potassium Clav 1 tab PO BID #14 tab 06/20/21 [Amox-Clav 875-125 mg Tablet] Fluticasone Propionate [Flonase 1 spr NS DAILY #1 each 06/20/21 50mcg nasal spray 16gm] tizanidine 2 mg tablet 4 mg PO HS #60 tab 06/26/21 trazodone 50 mg tablet 100 mg PO QHS #60 tab 06/26/21 Azithromycin [Z-Eliu 250mg Tab*] 250 mg PO UD DOSE PK #6 tab 07/06/21 Oseltamivir Phosphate [Tamiflu 75 mg PO BID #10 cap 07/06/21 75mg Capsule] methylPRE
[2021-08-02 20:28] LABS: Strep Scrn Group A (Rapid) Negative (Negative)
[2021-08-02 20:41] VITALS: BP 119/66; PULSE 86; RESP 18; TEMP 37.1
== END 2021-08-02 20:48 | disposition home or self-care (01) ==
PROVIDERS: Emergency Provider Nurse Practitioner Family; PCP Emergency Medicine
DX: H66.003 Acute suppurative otitis media without spontaneous rupture of ear drum, bilateral (principal); J02.9 Acute pharyngitis, unspecified; K21.9 Gastro-esophageal reflux disease without esophagitis; N20.0 Calculus of kidney; G43.909 Migraine, unspecified, not intractable, without status migrainosus; F32.A Depression, unspecified; F41.9 Anxiety disorder, unspecified; D64.9 Anemia, unspecified; M79.7 Fibromyalgia; E53.9 Vitamin B deficiency, unspecified; F17.210 Nicotine dependence, cigarettes, uncomplicated; Z79.52 Long term (current) use of systemic steroids; Z79.899 Other long term (current) drug therapy; Z88.2 Allergy status to sulfonamides; Z88.8 Allergy status to other drugs, medicaments and biological substances
CPT/HCPCS: 87430; 87804; 96372; 99213; G0463

== ENCOUNTER 2021-11-25 13:32 | Emergency (ER) | payer OTHER, SELFPAY ==
[2021-11-25 14:20] VITALS: BP 100/76; PULSE 101; RESP 20; TEMP 37.1; O2SAT 100; BMI 25.2
[2021-11-25 14:27] LABS: Adenovirus,PCR Not Detected (NotDetected); Bordetella Pertussis Not Detected (NotDetected); Chlamydophila Pneumoniae, PCR Not Detected (NotDetected); Coronavirus 19, PCR Not Detected (NotDetected); Coronavirus 229E Not Detected (NotDetected); Coronavirus NL63 Not Detected (NotDetected); Coronavirus OC43 Not Detected (NotDetected); Coronovirus HKU1,PCR Not Detected (NotDetected); Human Metapneumovirus Not Detected (NotDetected); Influenza A, PCR Not Detected (NotDetected); Influenza AH1, 2009 Not Detected (NotDetected); Influenza AH1, PCR Not Detected (NotDetected); Influenza AH3,PCR Not Detected (NotDetected); Influenza B, PCR Not Detected (NotDetected); Mycoplasma Pneumoniae, PCR Not Detected (NotDetected); Parainfluenza 1, PCR Not Detected (NotDetected); Parainfluenza 2, PCR Not Detected (NotDetected); Parainfluenza 3, PCR Not Detected (NotDetected); Parainfluenza 4, PCR Not Detected (NotDetected); Respiratory Syncytial Virus Not Detected (NotDetected); Rhinovirus/Enterovirus Not Detected (NotDetected)
--- NOTE | 2021-11-25 14:59 | HMH.EDUTC ---
[facility] [place] Disposition Clinical Impression: Viral syndrome Disposition: Home, Self-Care Condition on Discharge: Good Instructions: DI for Viral Syndrome, DI for Nausea -- Adult Additional Instructions: *Monitor Temp, Over the counter Motrin or Tylenol as directed/as needed Tylenol every 4 hours and Motrin every 6 hours (as long as your family doctor has told you that you can take it) for fever or pain. and straight to ER if unable to lower temp less than 101.0 after medication given *Warm salt water gargles may help to soothe the throat *Throat Lozenges *Warm fluids like tea with honey may help to soothe the throat *Sleep elevated *Humidifier/Vaporizer Follow up IMMEDIATELY for new or worsening symptoms or no Noticeable improvement over the next 48-72 hours. 911 for difficulty breathing or swallowing You were tested for today for COVID19 your test result should be back in the next 24-48 hours, you may check your results on the [facility] My Health Portal Make sure to take your Vitamins Vit. C Vit D and Zinc if you can take them Referrals: Kendall Andersen MD [Primary Care Provider] - As needed Medical Decision Making - Donny Inquiry Pt receiving controlled substance: No Donny was queried for this patient: No Vital Signs: 11/25/21 14:20 11/25/21 15:16 Temperature 98.7 F 98.7 F Temperature Source Oral Pulse Rate 101 H Pulse Rate [Right Brachial] 101 H Respiratory Rate 20 20 Blood Pressure 100/76 L Blood Pressure [Right Arm] 100/76 L Blood Pressure Mean [Right Arm] 84 Blood Pressure Source [Right Arm] Automatic Cuff Blood Pressure Position [Right Arm] Sitting 02 Sat by Pulse Oximetry 100 Oxygen Delivery Method Room Air Orders (Tests/Meds): ORDERS Category Date Time Status Full Resp Panel w/COVID ([facility]) Routine Lab 11/25/21 14:08 Received [facility] [place] HPI - General Stated complaint: BLISS, nausea, fatigue Time Seen by Provider: 11/25/21 14:59 Mode of Arrival: Ambulatory Source of Information: Patient Limitations: No Limitations Description of Symptoms (Recalled from Triage Doc. by RN): PATIENT C/O HEADACHE, NAUSEA AND FATIGUE SINCE YESTERDAY HEENT Symptoms (Recalled from RN notes): Yes Resp Symptoms (Recalled from RN notes): No Skin Symptoms (Recalled from RN notes): No MS Symptoms (Recalled from RN notes): No Functional Status (Recalled from RN notes): WNL - History of Present Illness Provider Complaint: Patient states that she started feeling bad yesterday States that she she has been having headache on and off, body aches, and nausea State that son was having similar symptoms and she was worried about COVID or another virus so she came in - Related Data Home Medications Medication Instructions Recorded Confirmed ferrous sulfate 140 mg (45 mg 140 mg PO BID tab 01/20/21 06/26/21 iron) tablet,extended release Previous Rx's Medication Instructions Recorded dextroamphetamine-amphetamine ER 10 mg PO DAILY #30 cap 05/30/21 10 mg 24hr capsule,extend release Amoxicillin/Potassium Clav 1 tab PO BID #14 tab 06/20/21 [Amox-Clav 875-125 mg Tablet] Fluticasone Propionate [Flonase 1 spr NS DAILY #1 each 06/20/21 50mcg nasal spray 16gm] tizanidine 2 mg tablet 4 mg PO HS #60 tab 06/26/21 trazodone 50 mg tablet 100 mg PO QHS #60 tab 06/26/21 Azithromycin [Z-Eliu 250mg Tab*] 250 mg PO UD DOSE PK #6 tab 07/06/21 Oseltamivir Phosphate [Tamiflu 75 mg PO BID #10 cap 07/06/21 75mg Capsule] methylPREDNISolone [Medrol] 4 mg PO DIRECTED 6 Days #21 07/06/21 packet Amoxicillin [Amoxicillin 875MG 875 mg PO Q12H #20 tab 08/02/21 Tab] Promethazine/Dextromethorphan 5 ml PO Q6HP PRN #240 ml 08/02/21 [Promethazine-Dm Syrup] methylPREDNISolone [Medrol] 4 mg PO DIRECTED 6 Days #21 08/02/21 packet Allergies Allergy/AdvReac Type Severity Reaction Status Date / Time duloxetine [From CYMBALTA] Allergy Unknown Verified 06/26/21 16:03 hydroxychloroquine Allergy Unknown Verified 0
[2021-11-25 15:16] VITALS: BP 100/76; PULSE 101; RESP 20; TEMP 37.1; O2SAT 100
== END 2021-11-25 15:50 | disposition home or self-care (01) ==
PROVIDERS: Emergency Provider Nurse Practitioner; PCP Emergency Medicine
DX: B34.9 Viral infection, unspecified (principal)
CPT/HCPCS: 87581; 87632; 87798; 99212; C9803; G0463; U0003; U0005

== ENCOUNTER 2022-03-07 11:19 | Emergency (ER) | payer OTHER, SELFPAY ==
[2022-03-07 13:25] VITALS: BP 125/75; PULSE 74; RESP 18; TEMP 36.6; O2SAT 99; BMI 23.9
[2022-03-07 13:39] LABS: Apearance,Urine Cloudy (Clear); Bilirubin,Urine Negative (Negative); Blood, Urine 1+ (Negative); Color,Urine Dark Yellow (Yellow); Glucose,Urine (UA) Negative (Negative); Ketones,Urine Negative (Negative); Protein,Urine Negative (Negative); UTC Leukocyte Esterase,Urine Negative (Negative); UTC Nitrate,Urine Negative (Negative); Urobilinogen,Urine 0.2 EU/dl (0.2)
--- NOTE | 2022-03-07 13:49 | EXP.UTC ---
Discharge Plan Disposition Patient Disposition: Home, Self-Care Condition: Good Prescriptions Prescriptions: New cefdinir 300 mg capsule 300 mg PO BID Qty: 20 0RF phenazopyridine [Pyridium] 200 mg tablet 200 mg PO Q8H 2 Days Qty: 6 0RF No Action trazodone 50 mg tablet 100 mg PO QHS Qty: 60 6RF Rx Instructions: 2 hours before bedtime tizanidine 2 mg tablet 4 mg PO HS Qty: 60 6RF ferrous sulfate 140 mg (45 mg iron) tablet extended release 140 mg PO BID dextroamphetamine-amphetamine [Adderall XR] 10 mg capsule,extended release 24hr 10 mg PO DAILY Qty: 30 0RF azithromycin 250 MG tablet 250 mg PO UD DOSE PK Qty: 6 0RF Rx Instructions: Take two (2) tablets today, then one (1) tablet days #2 thru #5 oseltamivir 75 MG capsule 75 mg PO BID Qty: 10 0RF methylprednisolone 4 MG tablets,dose pack 4 mg PO DIRECTED 6 Days Qty: 21 0RF methylprednisolone 4 MG tablets,dose pack 4 mg PO DIRECTED 6 Days Qty: 21 0RF promethazine-DM 120 ML syrup 5 ml PO Q6HP PRN (Reason: Cough) Qty: 240 0RF amoxicillin 875 MG tablet 875 mg PO Q12H Qty: 20 0RF fluticasone propionate 120 SPR/BOT bottle 1 spr NS DAILY Qty: 1 0RF Rx Instructions: one spray in each nostril daily amoxicillin-pot clavulanate 1 EACH tablet 1 tab PO BID Qty: 14 0RF Referrals Follow up/Referrals: Kendall Andersen MD [Primary Care Provider] - See instructions Activity Restrictions/Add. Instructions Additional Instructions/Restrictions: *Increase fluids. Water not Soda or Tea *Start antibiotic immediately and be sure to take as ordered for the FULL length of time although you should start to see improvement over the next 48 hours *Pyridium as needed Remember this medication will turn your urine . This is normal but it will stain what ever it gets on *You should not use Pyridium for more than 48 hours. If so , follow up with your primary physician to review urine culture and ensure that antibiotic is adequate for infection *Be SURE to follow up anytime for new or worsening symptoms with your family doctor. AND in 48 hours for urine culture results with your family doctor, if you do not have a doctor then you may call back to the [facility] for urine culture results and further treatment. We do recommend that you choose and establish care with a Primary Care Physician. ?AND follow up with them ?in 10-14 days to repeat UA to ensure infection is resolved and blood no longer present *Be sure to let your PCP know that we sent urine cultures from the [facility] so they can follow up to ensure that you area the on the correct antibiotic Call your doctor office and make appointment for 48 hours (2 days from today) ?to follow up and get the results of your urine culture and further treatment Clinical Impressions Clinical Impression: UTI symptoms Sinusitis Qualifiers: Sinusitis location: unspecified location Chronicity: unspecified Qualified Code(s): J32.9 - Chronic sinusitis, unspecified Instructions Patient Instructions: Sinusitis, DI for Sinusitis, DI for Urinary Tract Infection (UTI) Discharge ED Provider: Pham Dixon [facility] [place] General Stated complaint: possible kidney infection Mode of Arrival: Ambulatory Source of Information: Patient Limitations: No Limitations Time Seen by Provider: 03/07/22 13:49 Description of Symptoms (Recalled from Triage Doc. by RN): PATIENT C/O URINARY URGENCY AND FLANK PAIN X 1.5 WEEKS. ALSO C/O COUGH AND SINUS CONGESTION HEENT Symptoms (Recalled from RN notes): Yes Resp Symptoms (Recalled from RN notes): Yes Skin Symptoms (Recalled from RN notes): No MS Symptoms (Recalled from RN notes): No Functional Status (Recalled from RN notes): WNL History of Present Illness Provider Complaint: Patient states that about a week in half ago she had some flank pain and burning with urination but flank pain got better State that she has still been having burning on and off and
[2022-03-07 14:02] VITALS: BP 125/75; PULSE 74; RESP 18; TEMP 36.6; O2SAT 99
== END 2022-03-07 14:06 | disposition home or self-care (01) ==
PROVIDERS: Emergency Provider Nurse Practitioner; PCP Emergency Medicine
DX: N39.0 Urinary tract infection, site not specified (principal); J32.9 Chronic sinusitis, unspecified
CPT/HCPCS: 81003; 87086; 99212; G0463

== ENCOUNTER 2022-03-22 20:02 | Emergency (ER) | payer OTHER, SELFPAY ==
[2022-03-22 20:03] VITALS: BP 130/80; PULSE 98; RESP 16; TEMP 36.9; O2SAT 98; BMI 22.9
--- NOTE | 2022-03-22 20:34 | HMH.EDALLER ---
Discharge Plan Disposition Patient Disposition: Home, Self-Care Prescriptions Prescriptions: New prednisone [prednisone] 20 mg tablet 20 mg PO BID Qty: 10 0RF No Action trazodone 50 mg tablet 100 mg PO QHS Qty: 60 6RF Rx Instructions: 2 hours before bedtime tizanidine 2 mg tablet 4 mg PO HS Qty: 60 6RF ferrous sulfate 140 mg (45 mg iron) tablet extended release 140 mg PO BID dextroamphetamine-amphetamine [Adderall XR] 10 mg capsule,extended release 24hr 10 mg PO DAILY Qty: 30 0RF azithromycin 250 MG tablet 250 mg PO UD DOSE PK Qty: 6 0RF Rx Instructions: Take two (2) tablets today, then one (1) tablet days #2 thru #5 oseltamivir 75 MG capsule 75 mg PO BID Qty: 10 0RF methylprednisolone 4 MG tablets,dose pack 4 mg PO DIRECTED 6 Days Qty: 21 0RF methylprednisolone 4 MG tablets,dose pack 4 mg PO DIRECTED 6 Days Qty: 21 0RF promethazine-DM 120 ML syrup 5 ml PO Q6HP PRN (Reason: Cough) Qty: 240 0RF amoxicillin 875 MG tablet 875 mg PO Q12H Qty: 20 0RF cefdinir 300 mg capsule 300 mg PO BID Qty: 20 0RF phenazopyridine [Pyridium] 200 mg tablet 200 mg PO Q8H 2 Days Qty: 6 0RF fluticasone propionate 120 SPR/BOT bottle 1 spr NS DAILY Qty: 1 0RF Rx Instructions: one spray in each nostril daily amoxicillin-pot clavulanate 1 EACH tablet 1 tab PO BID Qty: 14 0RF Referrals Follow up/Referrals: Kendall Andersen MD [Primary Care Provider] - See instructions Michael Farah [Referring] - See instructions Clinical Impressions Clinical Impression: Allergic reaction Instructions Patient Instructions: DI for General Allergic Reactions Discharge ED Provider: Kendall Andersen Allergic React/Insect Bite HPI General Chief complaint: Allergic Reaction Stated complaint: poss allergic reaction hives, itchy Time Seen by Provider: 03/22/22 20:34 Mode of Arrival - ED Triage: Ambulatory Source of Information: Patient and Medical Record Limitations: No Limitations History of Present Illness HPI narrative: pt with itchy rash to trunk and ext w/o hx of fever or illness and no tick bite - MD complaint: allergic reaction Onset (ago): day(s) Exposure: unknown Symptoms: rash and itching Treatment prior to arrival: benadryl Allergies Allergy/AdvReac Type Severity Reaction Status Date / Time duloxetine [From CYMBALTA] Allergy Unknown Verified 06/26/21 16:03 hydroxychloroquine Allergy Unknown Verified 06/26/21 16:03 [From PLAQUENIL] morphine [MORPHINE] Allergy Unknown Verified 06/26/21 16:03 Sulfa (Sulfonamide Allergy Unknown Verified 06/26/21 16:03 Antibiotics) [SULFA (SULFONAMIDE ANTIBIOTICS)] Previous Allergic Reaction History: none Severity: moderate Related Data Home Medications Medication Instructions Recorded Confirmed ferrous sulfate 140 mg (45 mg 140 mg PO BID Supplement 01/20/21 06/26/21 iron) tablet,extended release Previous Rx's Medication Instructions Recorded dextroamphetamine-amphetamine ER 10 mg PO DAILY #30 caps 05/30/21 10 mg 24hr capsule,extend release (Adderall XR) amoxicillin 875 mg-potassium 1 tab PO BID #14 tabs 06/20/21 clavulanate 125 mg tablet fluticasone propionate 50 1 spr NS DAILY #1 ea 06/20/21 mcg/actuation nasal spray,suspension tizanidine 2 mg tablet 4 mg PO HS headaches/migraines #60 06/26/21 tabs trazodone 50 mg tablet 100 mg PO QHS sleep #60 tabs 06/26/21 azithromycin 250 mg tablet 250 mg PO UD DOSE PK #6 tabs 07/06/21 methylprednisolone 4 mg tablets in 4 mg PO DIRECTED 6 days #21 07/06/21 a dose pack packets oseltamivir 75 mg capsule 75 mg PO BID #10 caps 07/06/21 amoxicillin 875 mg tablet 875 mg PO Q12H #20 tabs 08/02/21 methylprednisolone 4 mg tablets in 4 mg PO DIRECTED 6 days #21 08/02/21 a dose pack packets promethazine-DM 6.25 mg-15 mg/5 mL 5 ml PO Q6HP PRN Cough #240 mL 08/02/21 oral syrup cefdinir 300 mg capsule 300
[2022-03-22 20:45] LABS: Basophils # 0.1 K/mm3 (0-0.2); Basophils % 0.6 % (0.1-2.0); Eosinophils # 0.2 K/mm3 (0.0-0.4); Eosinophils % 1.2 % (0.1-12.0); Hematocrit 42.5 % (37.0-47.0); Hemoglobin 13.8 g/dL (12.2-16.2); Lymphocytes # 3.5 K/mm3 (0.7-4.5); Lymphocytes % 22.8 % (10-50); Mean Corpuscular HGB Conc 32.6 g/dL (31.8-35.4); Mean Corpuscular Hemoglobin 32.6 pg (27.0-31.2); Mean Corpuscular Volume 100.1 fl (81-99); Monocytes # 0.6 K/mm3 (0.1-1.0); Monocytes % 3.9 % (1.7-9.3); Neutrophils # 11.1 K/mm3 (1.8-7.8); Neutrophils % 71.5 % (37.0-80.0); Platelet Count 332 K/mm3 (142-424); Red Blood Count 4.24 M/mm3 (4.20-5.40); Red Cell Distribution Width 12.8 % (11.5-17.5); White Blood Count 15.6 K/mm3 (4.8-10.8)
[2022-03-22 20:49] LABS: Alanine Aminotransferase 16 U/L (12-78); Albumin Level 4.3 g/dl (3.5-5.0); Albumin/Globulin Ratio 1.7 (1.1-1.8); Alkaline Phosphatase 63 U/L (38-126); Anion Gap 9.5 mEq/L (5-15); Aspartate Amino Transferase 24 U/L (14-36); Bilirubin,Total 0.2 mg/dl (0.2-1.3); Blood Urea Nitrogen 22 mg/dl (7-17); Calcium 9.8 mg/dl (8.4-10.2); Carbon Dioxide 27 mmol/L (22.0-30.0); Chloride 106 mmol/L (98-107); Creatinine Clearance Estimated 106 mL/min (50-200); Estimated Glomerular Filt Rate 93 ml/min (>60); GFR (African American) 112 ML/MIN (>60); Globulin 2.6 g/dL (1.3-3.2); Glucose 101 mg/dl (74-100); MANUAL DIFFERENTIAL MANUAL DIFFERENTIAL (MANUAL DIFF); Potassium 3.5 mmoL/L (3.5-5.1); Sodium 139 mmol/L (136-145); Total Protein,Serum 6.9 g/dl (6.3-8.2)
[2022-03-22 20:56] LABS: C-Reactive Protein 4.6 mg/L (0-4)
[2022-03-22 21:07] LABS: Lymphocytes % 31 % (10-50); Monocytes % 1 % (2-9); Neutrophils % 67 % (42-76); Platelet Estimate Normal; RBC Morphology Normal; Total Cells Counted 100
[2022-03-22 21:11] LABS: Procalcitonin < 0.030 ng/mL (0.0-2.0)
[2022-03-22 21:17] LABS: Free T4 (Free Thyroxine) 1.01 ng/dl (0.78-2.19)
[2022-03-22 21:19] LABS: Erythrocyte Sedimentation Rate 11 mm/hr (0-20)
[2022-03-22 21:22] LABS: Thyroid Stimulating Hormone 0.78 uIU/mL (0.465-4.68)
[2022-03-22 22:50] VITALS: BP 134/73; PULSE 87; RESP 16; TEMP 36.9; O2SAT 98
== END 2022-03-22 22:15 | disposition home or self-care (01) ==
PROVIDERS: Emergency Provider Emergency Medicine; PCP Emergency Medicine
DX: R21 Rash and other nonspecific skin eruption (principal); L50.9 Urticaria, unspecified; R50.9 Fever, unspecified; K21.9 Gastro-esophageal reflux disease without esophagitis; G43.909 Migraine, unspecified, not intractable, without status migrainosus; F32.A Depression, unspecified; F41.9 Anxiety disorder, unspecified; F17.210 Nicotine dependence, cigarettes, uncomplicated; Z79.51 Long term (current) use of inhaled steroids; Z79.52 Long term (current) use of systemic steroids; Z79.899 Other long term (current) drug therapy; Z88.2 Allergy status to sulfonamides; Z88.5 Allergy status to narcotic agent; Z88.8 Allergy status to other drugs, medicaments and biological substances; Z87.442 Personal history of urinary calculi; Z87.440 Personal history of urinary (tract) infections
CPT/HCPCS: 80053; 84145; 84439; 84443; 85007; 85025; 85651; 86140; 96361; 96374; 96375; 99284

== ENCOUNTER → 2022-04-07 10:20 | Outpatient (CLI) | payer OTHER, SELFPAY ==
[2022-04-07 13:49] LABS: Ferritin 82.3 ng/ml (6.24-137)
== END ==
PROVIDERS: PCP Emergency Medicine; Visit Provider Nurse Practitioner Family
DX: E61.1 Iron deficiency (principal); E83.10 Disorder of iron metabolism, unspecified
CPT/HCPCS: 36415; 82728

== ENCOUNTER 2022-09-12 09:26 | Emergency (ER) | payer OTHER, SELFPAY ==
[2022-09-12 09:27] VITALS: BP 111/60; PULSE 91; RESP 18; TEMP 36.9; O2SAT 97; BMI 23.3
[2022-09-12 09:46] LABS: UTC Strep Screen (Rapid) Positive (Negative)
--- NOTE | 2022-09-12 09:46 | EXP.UTC ---
Discharge Plan Disposition Patient Disposition: Home Health Service Condition: Good Prescriptions Prescriptions: New amoxicillin [amoxicillin] 875 mg tablet 875 mg PO Q12H Qty: 20 0RF benzonatate [benzonatate] 100 mg capsule 100 mg PO TIDP PRN (Reason: Cough) Qty: 30 0RF methylprednisolone 4 mg Tablets,Dose Pack 4 mg PO DIRECTED Qty: 21 0RF No Action ferrous sulfate 140 mg (45 mg iron) tablet extended release 140 mg PO BID tizanidine 2 mg tablet 4 mg PO HS 90 Days Qty: 180 1RF trazodone 50 mg tablet 100 mg PO QHS 90 Days Qty: 180 1RF Rx Instructions: 2 hours before bedtime Referrals Follow up/Referrals: Kendall Andersen MD [Primary Care Provider] - See instructions Activity Restrictions/Add. Instructions Additional Instructions/Restrictions: Drink plenty of fluids. Take tylenol or ibuprofen for pain or fever. Take the medications as directed. Follow up with your regular doctor. GO TO THE ER FOR ANY WORSENING SYMPTOMS Throw your tooth brush away and get a new one. Clinical Impressions Clinical Impression: Strep throat Instructions Patient Instructions: Strep Throat, DI for Strep Throat Discharge ED Provider: Doc Lambert [facility] General Stated complaint: Sore throat,Headache,Bodyaches,Cough Mode of Arrival: Ambulatory Source of Information: Patient Limitations: No Limitations Time Seen by Provider: 09/12/22 09:46 Description of Symptoms (Recalled from Triage Doc. by RN): Patient complaint of sore throat, right ear pain, headache, body aches, coughing and congestion for 1.5 weeks. Patient states that she was exposed to strep. HEENT Symptoms (Recalled from RN notes): Yes Resp Symptoms (Recalled from RN notes): No Skin Symptoms (Recalled from RN notes): No MS Symptoms (Recalled from RN notes): No Functional Status (Recalled from RN notes): wnl History of Present Illness Provider Complaint: She states that she has had a sore throat for the past 10 days. Related Data Home Medications Medication Instructions Recorded Confirmed ferrous sulfate 140 mg (45 mg 140 mg PO BID Supplement 01/20/21 07/31/22 iron) tablet,extended release Previous Rx's Medication Instructions Recorded tizanidine 2 mg tablet 4 mg PO HS headaches/migraines 90 04/07/22 days #180 tabs trazodone 50 mg tablet 100 mg PO QHS sleep 90 days #180 04/07/22 tabs amoxicillin 875 mg tablet 875 mg PO Q12H #20 tabs 09/12/22 benzonatate 100 mg capsule 100 mg PO TIDP PRN Cough #30 caps 09/12/22 methylprednisolone 4 mg tablets in 4 mg PO DIRECTED #21 tabs 09/12/22 a dose pack Allergies Allergy/AdvReac Type Severity Reaction Status Date / Time duloxetine [From CYMBALTA] Allergy Unknown Verified 07/31/22 14:40 hydroxychloroquine Allergy Unknown Verified 07/31/22 14:40 [From PLAQUENIL] morphine [MORPHINE] Allergy Unknown Verified 07/31/22 14:40 Sulfa (Sulfonamide Allergy Unknown Verified 07/31/22 14:40 Antibiotics) [SULFA (SULFONAMIDE ANTIBIOTICS)] Worker's Comp Is this a Worker's Comp case?: No [facility] Disclaimer: The information contained in this section may have been updated after the patient was seen, as this information can be updated by other users. Medical History Anxiety Depression History of gastroesophageal reflux (GERD) Kidney stone Migraine Urinary tract infection Surgical History History of section History of endometrial ablation History of hysteroscopy History of tonsillectomy History of tubal ligation Social History Smoking Status: Current every day smoker tobacco type: cigarettes packs per day: 1 second hand exposure: No alcohol intake: never substance use type: denies use current occupational status: other Travel in the last 8 weeks: N
[2022-09-12 10:27] VITALS: BP 111/60; PULSE 91; RESP 18; TEMP 36.9; O2SAT 97
== END 2022-09-12 10:28 | disposition home health service (06) ==
PROVIDERS: Emergency Provider Nurse Practitioner Family; PCP Emergency Medicine
DX: J02.0 Streptococcal pharyngitis (principal); R51.9 Headache, unspecified; R05.9 Cough, unspecified; F17.210 Nicotine dependence, cigarettes, uncomplicated; F41.9 Anxiety disorder, unspecified; F32.9 Major depressive disorder, single episode, unspecified
CPT/HCPCS: 87880; 99212; 99214; G0463

== ENCOUNTER 2022-10-12 15:14 | Emergency (ER) | payer OTHER, SELFPAY ==
[2022-10-12 15:30] VITALS: BP 129/82; PULSE 63; RESP 18; TEMP 36.8; O2SAT 98; BMI 24.6
--- NOTE | 2022-10-12 16:13 | EXP.UTC ---
Discharge Plan Disposition Patient Disposition: Home, Self-Care Condition: Good Prescriptions Prescriptions: New azithromycin [Zithromax Z-Eliu] 250 mg tablet See Rx Instructions .ROUTE .COMPLEX 5 Days Qty: 6 0RF Rx Instructions: For 250 mg dose pack: take 500 mg today (day 1), then 250 mg for 4 days (days 2-5) benzonatate 100 mg capsule 100 mg PO TID PRN (Reason: cough) Qty: 30 0RF methylprednisolone [Medrol (Eliu)] 4 mg tablets,dose pack See Rx Instructions .Route .COMPLEX 6 Days Qty: 21 0RF Rx Instructions: taper pack; guaifenesin [Mucinex] 600 mg tablet extended release 12hr 600 mg PO BID PRN (Reason: cough/congestion) Qty: 20 0RF No Action ferrous sulfate 140 mg (45 mg iron) tablet extended release 140 mg PO BID tizanidine 2 mg tablet 4 mg PO HS 90 Days Qty: 180 3RF trazodone 50 mg tablet 100 mg PO QHS 90 Days Qty: 180 3RF Rx Instructions: 2 hours before bedtime benzonatate [benzonatate] 100 mg capsule 100 mg PO TIDP PRN (Reason: Cough) Qty: 30 0RF Referrals Follow up/Referrals: Kendall Andersen MD [Primary Care Provider] - See instructions Activity Restrictions/Add. Instructions Additional Instructions/Restrictions: Start antibiotic today. Be sure to complete entire prescription even if feeling better Monitor temp. Tylenol every 4 hours as needed and / or ibuprofen every 6 hours as needed ( As long as your primary care physician has told you that it ok to take both. For fever/aches/pains ER if no less than 101 despite Tylenol or Motrin Humidifier/vaporizer or hot steamy shower Mucinex during the day for your cough and cough suppressant only at night. Be sure to drink lots of water. *Tessalon Perles will not cause drowsiness but use at bedtime to help stop cough so that you may get some rest. *Start steroid today. Helps with inflammation therefore, cough and wheezing. Follow directions on the package. Reviewed side effects. Patient reports taking them before. Follow up IMMEDIATELY for new or worsening of symptoms OR no noticeable improvement over the next 48-72 hours. 911 immediately for any life threatening symptoms such as chest pain or difficulty breathing Clinical Impressions Clinical Impression: Bronchitis Sinusitis Qualifiers: Sinusitis location: unspecified location Chronicity: unspecified Qualified Code(s): J32.9 - Chronic sinusitis, unspecified Instructions Patient Instructions: DI for Sinusitis, Acute Bronchitis Discharge ED Provider: Pham Dixon [facility] [place] HPI General Stated complaint: congestion, cough Mode of Arrival: Ambulatory Source of Information: Patient Limitations: No Limitations Time Seen by Provider: 10/12/22 16:13 Description of Symptoms (Recalled from Triage Doc. by RN): PATIENT C/O CONGESTION AND PRODUCTIVE COUGH X 1 WEEK HEENT Symptoms (Recalled from RN notes): Yes Resp Symptoms (Recalled from RN notes): Yes Skin Symptoms (Recalled from RN notes): No MS Symptoms (Recalled from RN notes): No Functional Status (Recalled from RN notes): WNL History of Present Illness Provider Complaint: Patient states that she hasnt been feeling well for about a week continued to get worse States that she has been having nasal congestion and chest congestion and at times she will cough up some yellowish colored mucous States that she was worried if she didnt come in and get something she would end up with Pneumonia Related Data Home Medications Medication Instructions Recorded Confirmed ferrous sulfate 140 mg (45 mg 140 mg PO BID Supplement 01/20/21 09/28/22 iron) tablet,extended release Previous Rx's Medication Instructions Recorded benzonatate 100 mg capsule 100 mg PO TIDP PRN Cough #30 caps 09/12/22 tizanidine 2 mg tablet 4 mg PO HS headaches/migraines 90 09/28/22 days #180 tabs trazodone 50 mg tablet 100 mg PO QHS sleep 90 days #180 09/28/22 tabs azithromyc
[2022-10-12 16:24] VITALS: BP 129/82; PULSE 63; RESP 18; TEMP 36.8; O2SAT 98
== END 2022-10-12 16:26 | disposition home or self-care (01) ==
PROVIDERS: Emergency Provider Nurse Practitioner; PCP Emergency Medicine
DX: J20.9 Acute bronchitis, unspecified (principal); F17.210 Nicotine dependence, cigarettes, uncomplicated; F41.9 Anxiety disorder, unspecified; F32.A Depression, unspecified
CPT/HCPCS: 99212; 99214; G0463

== ENCOUNTER 2022-12-22 12:52 | Emergency (ER) | payer OTHER, SELFPAY ==
[2022-12-22 13:00] VITALS: BP 126/82; PULSE 74; RESP 19; TEMP 36.9; O2SAT 99; BMI 23.5
[2022-12-22 13:19] VITALS: BP 126/82; PULSE 74; RESP 19; TEMP 36.9; O2SAT 99
--- NOTE | 2022-12-22 13:21 | EXP.UTC ---
Discharge Plan Disposition Patient Disposition: Home, Self-Care Condition: Good Prescriptions Prescriptions: New benzonatate 100 mg capsule 100 mg PO TID PRN (Reason: cough) Qty: 30 0RF methylprednisolone [Medrol (Eliu)] 4 mg tablets,dose pack See Rx Instructions .Route .COMPLEX 6 Days Qty: 21 0RF Rx Instructions: taper pack; guaifenesin [Mucinex] 600 mg tablet extended release 12hr 600 - 1,200 mg PO BID PRN (Reason: cough/congestion) Qty: 20 0RF azithromycin [Zithromax Z-Eliu] 250 mg tablet See Rx Instructions .ROUTE .COMPLEX 5 Days Qty: 6 0RF Rx Instructions: For 250 mg dose pack: take 500 mg today (day 1), then 250 mg for 4 days (days 2-5) No Action tizanidine 2 mg tablet 4 mg PO HS 90 Days Qty: 180 3RF trazodone 50 mg tablet 100 mg PO QHS 90 Days Qty: 180 3RF Rx Instructions: 2 hours before bedtime Referrals Follow up/Referrals: Kendall Andersen MD [Primary Care Provider] - See instructions Activity Restrictions/Add. Instructions Additional Instructions/Restrictions: Start antibiotic today. Be sure to complete entire prescription even if feeling better Monitor temp. Tylenol every 4 hours as needed and / or ibuprofen every 6 hours as needed ( As long as your primary care physician has told you that it ok to take both. For fever/aches/pains ER if no less than 101 despite Tylenol or Motrin Humidifier/vaporizer or hot steamy shower Inhaler every 4-6 hours as needed like we discussed. If unsure how to use it, ask pharmacist to demonstrate how. Should help open airways and improve cough, wheezing, and shortness of breath Mucinex during the day for your cough and cough suppressant only at night. Be sure to drink lots of water. *Tessalon Perles will not cause drowsiness but use at bedtime to help stop cough so that you may get some rest. *Start steroid today. Helps with inflammation therefore, cough and wheezing. Follow directions on the package. Reviewed side effects. Patient reports taking them before. Follow up IMMEDIATELY for new or worsening of symptoms OR no noticeable improvement over the next 48-72 hours. 911 immediately for any life threatening symptoms such as chest pain or difficulty breathing Clinical Impressions Clinical Impression: Bronchitis Stand Alone Forms Stand Alone Forms: Work/School Release Instructions Patient Instructions: Cough, DI for Sinusitis, DI for COVID-19 (Suspected or Confirmed ) Discharge ED Provider: Pham Dixon [facility] [place] General Stated complaint: covid+, BLISS, congestion, cough, weak Mode of Arrival: Ambulatory Source of Information: Patient Limitations: No Limitations Time Seen by Provider: 12/22/22 13:21 Description of Symptoms (Recalled from Triage Doc. by RN): PATIENT C/O COUGH, BODY ACHES, SINUS PRESSURE, AND SOA X 3 DAYS. REPORTS A POSITIVE AT HOME COVID TEST HEENT Symptoms (Recalled from RN notes): Yes Resp Symptoms (Recalled from RN notes): Yes Skin Symptoms (Recalled from RN notes): No MS Symptoms (Recalled from RN notes): No Functional Status (Recalled from RN notes): WNL History of Present Illness Provider Complaint: Patient states that last week she felt like she had bad sinus infection/allergies and cough and she took a home COVID test and it was positive States that she has been quarantining but now she started with productive cough at times, and feeling like it is trying to move into her chest States that she is still having some sinus pressure and pressure behind her eyes and cough States that she wasnt sure how long she would be having symptoms with COVID or if she may have something else now too since she is not feeling any better Related Data Previous Rx's Medication Instructions Recorded tizanidine 2 mg tablet 4 mg PO HS headaches/migraines 90 09/28/22 days #180 tabs trazodone 50 mg tablet 100 mg PO QHS sleep 90 days #180 09/28/22
== END 2022-12-22 13:34 | disposition home or self-care (01) ==
PROVIDERS: Emergency Provider Nurse Practitioner; PCP Emergency Medicine
DX: J20.9 Acute bronchitis, unspecified (principal); F17.210 Nicotine dependence, cigarettes, uncomplicated; F41.9 Anxiety disorder, unspecified; F32.A Depression, unspecified
CPT/HCPCS: 87635; 99212; 99214; G0463

== ENCOUNTER 2023-05-23 14:16 | Emergency (ER) | payer OTHER, SELFPAY ==
[2023-05-23 15:00] VITALS: BP 114/68; PULSE 69; RESP 20; TEMP 36.7; O2SAT 98; BMI 23.3
--- NOTE | 2023-05-23 15:16 | EXP.UTC ---
Discharge Plan Disposition Patient Disposition: Home, Self-Care Condition: Good Prescriptions Prescriptions: New azithromycin [Zithromax] 250 mg tablet 250 mg PO UD DOSE PK Qty: 6 0RF Rx Instructions: Take two (2) tablets today, then one (1) tablet days #2 thru #5 methylprednisolone 4 mg Tablets,Dose Pack 4 mg PO DIRECTED 6 Days Qty: 21 0RF Rx Instructions: Take 1 pack as directed for 6 days gaolykoztqvgmhb-[id number] [Bromfed DM] 2-30-10 mg/5 mL Syrup 5 ml PO Q6H PRN (Reason: Cough) Qty: 240 0RF No Action tizanidine 2 mg tablet 4 mg PO HS 90 Days Qty: 180 3RF trazodone 50 mg tablet 100 mg PO QHS 90 Days Qty: 180 3RF Rx Instructions: 2 hours before bedtime albuterol sulfate [Proventil HFA] 90 mcg/actuation HFA aerosol inhaler 1 - 2 inh inhalation Q6H PRN (Reason: shortness of breath or wheezing) Qty: 8.5 0RF Referrals Follow up/Referrals: Abelardo Martin DO [Primary Care Provider] - See instructions Activity Restrictions/Add. Instructions Additional Instructions/Restrictions: Drink plenty of fluids. Take tylenol or ibuprofen for pain or fever. Take the medications as directed. Follow up with your regular doctor. GO TO THE ER FOR ANY WORSENING SYMPTOMS Clinical Impressions Clinical Impression: Bronchitis Stand Alone Forms Stand Alone Forms: Work/School Release Instructions Patient Instructions: Acute Bronchitis, DI for Acute Bronchitis Discharge ED Provider: Doc Lambert [facility] General Stated complaint: cough bliss Mode of Arrival: Ambulatory Source of Information: Patient Limitations: No Limitations Time Seen by Provider: 05/23/23 15:13 Description of Symptoms (Recalled from Triage Doc. by RN): BLISS, cough, and cough congestion HEENT Symptoms (Recalled from RN notes): Yes Resp Symptoms (Recalled from RN notes): No Skin Symptoms (Recalled from RN notes): No MS Symptoms (Recalled from RN notes): No Functional Status (Recalled from RN notes): n/a History of Present Illness Provider Complaint: She states that for the past 2 weeks she has had a worsening cough and chest congestion. She is coughing up yellowish sputum. She also has sinus congestion. She denies any fever/chills/body aches. Related Data Previous Rx's Medication Instructions Recorded tizanidine 2 mg tablet 4 mg PO HS headaches/migraines 90 09/28/22 days #180 tabs trazodone 50 mg tablet 100 mg PO QHS sleep 90 days #180 09/28/22 tabs albuterol sulfate 90 mcg/actuation 1 - 2 inh inhalation Q6H PRN 12/22/22 aerosol inhaler (Proventil HFA) shortness of breath or wheezing #8.5 grams azithromycin 250 mg tablet 250 mg PO UD DOSE PK #6 tabs 05/23/23 (Zithromax) ctxcabifncmxrfo-jbbahxoowysumsc-FA 5 ml PO Q6H PRN Cough #240 mL 05/23/23 2 mg-30 mg-10 mg/5 mL oral syrup (Bromfed DM) methylprednisolone 4 mg tablets in 4 mg PO DIRECTED 6 days #21 tabs 05/23/23 a dose pack Allergies Allergy/AdvReac Type Severity Reaction Status Date / Time duloxetine [From CYMBALTA] Allergy Unknown Verified 05/23/23 15:11 hydroxychloroquine Allergy Unknown Verified 05/23/23 15:11 [From PLAQUENIL] morphine [MORPHINE] Allergy Unknown Verified 05/23/23 15:11 Sulfa (Sulfonamide Allergy Unknown Verified 05/23/23 15:11 Antibiotics) [SULFA (SULFONAMIDE ANTIBIOTICS)] Worker's Comp Is this a Worker's Comp case?: No [facility] Disclaimer: The information contained in this section may have been updated after the patient was seen, as this information can be updated by other users. 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 caffeine: Yes ROS Obtained: Yes All systems reviewed & no additional complaints except as documented Constitutional Constitutional: Reports poor appetite Eyes Eyes: Reports system reviewed and no additional complaints, except as documented ENT Ears, Nose, Mouth, and Throat: Reports as per HPI Cardiovascular Cardiovascular: Reports system reviewed and no additional complaints, except as documented and Denies chest pain Respiratory Respiratory: Denies shortness of breath, Reports chest congestion, Reports cough, Denies stridor and Denies wheezing Gastrointestinal Gastrointestingal: Reports system reviewed and no additional complaints, except as documented; Denies abdominal pain, diarrhea or vomiting Musculoskeletal Musculoskeletal: Reports system reviewed and no additional complaints, except as documented and Denies arthralgias Integumentary/Breasts Skin/Breast: Reports system reviewed and no additional complaints, except as documented and Denies rash Neurologic Neurologic: Denies paresthesias Allergic/Immunologic Allergic/Immunologic: Denies wheezing Physical Exam General General appearance: alert and in no apparent distress Eye Eye exam: Present normal appearance, PERRL and EOMI ENT ENT exam: Present mucous membranes moist and normal external ear exam Expanded ENT Exam External ear exam: Present normal external inspection TM/Canal exam: Bilateral TM: erythema and bulging Nose exam: Absent sinus tenderness Nasal speculum exam: Bilateral: normal Mouth exam: Present normal external inspection; Absent drooling Teeth exam: Present normal inspection Throat exam: Present tonsillar erythema and tonsillomegaly Neck Neck exam: Present normal inspection, full ROM and trachea midline; Absent tenderness, lymphadenopathy or thyromegaly Chest Chest inspection: Present normal inspection and symmetric chest wall rise; Absent tenderness or rash Respiratory Respiratory exam: Present normal lung sounds bilaterally; Absent respiratory distress, wheezes, stridor or accessory muscle use Cardiovascular Cardiovascular exam: Present regular rate, normal rhythm and normal heart sounds Abdominal Exam Abdominal exam: Present soft; Absent distention, tenderness, guarding, rebound or rigidity Extremities Exam Extremities exam: Present normal inspection, full ROM and normal capillary refill; Absent tenderness or calf tenderness Back Exam Back exam: Present normal inspection and full ROM; Absent tenderness Neurological Exam Neurological exam: Present alert and oriented X3 Psychiatric Psychiatric exam: Present normal affect and normal mood Skin Skin exam: Present warm, dry, intact and normal color Lymphatic Lymphatic Findings: no adenopathy Medical Decision Making Medical Records Medical records reviewed: No I reviewed the patient's medical records. Donny Inquiry Pt receiving controlled substance: No Vital Signs: 05/23/23 15:00 Temperature 98.1 F Temperature Source Oral Pulse Rate [Right Radial] 69 Respiratory Rate 20 Blood Pressure [Right Arm] 114/68 Blood Pressure Mean [Right Arm] 83 Blood Pressure Source [Right Arm] Automatic Cuff Blood Pressure Position [Right Arm] Sitting 02 Sat by Pulse Oximetry 98 Oxygen Delivery Method Room Air
[2023-05-23 15:23] LABS: UTC Influenza A Antigen Negative (Negative)
[2023-05-23 15:24] LABS: UTC Influenza B Antigen Negative (Negative)
[2023-05-23 15:44] VITALS: BP 114/68; PULSE 69; RESP 20; TEMP 36.7; O2SAT 98
== END 2023-05-23 15:44 | disposition home or self-care (01) ==
PROVIDERS: Emergency Provider Nurse Practitioner Family; PCP Internal Medicine
DX: J20.9 Acute bronchitis, unspecified (principal); R05.8 Other specified cough; R09.89 Other specified symptoms and signs involving the circulatory and respiratory systems; R09.81 Nasal congestion; F17.210 Nicotine dependence, cigarettes, uncomplicated
CPT/HCPCS: 87804; 99212; 99214; G0463

== ENCOUNTER 2023-08-16 16:58 | Emergency (ER) | payer OTHER, SELFPAY ==
[2023-08-16 17:30] VITALS: BP 128/70; PULSE 65; RESP 18; TEMP 37; O2SAT 100; BMI 22.8
[2023-08-16 18:03] LABS: UTC Strep Screen (Rapid) Negative (Negative)
[2023-08-16 18:04] VITALS: BP 128/70; PULSE 65; RESP 18; TEMP 37; O2SAT 100
--- NOTE | 2023-08-16 18:08 | ED_ITS ---
Discharge Plan Disposition Patient Disposition: Home, Self-Care Condition: Good Prescriptions Prescriptions: No Action tizanidine 2 mg tablet 4 mg PO HS 90 Days Qty: 180 3RF trazodone 50 mg tablet 100 mg PO QHS 90 Days Qty: 180 3RF Rx Instructions: 2 hours before bedtime Referrals Follow up/Referrals: Abelardo Martin DO [Primary Care Provider] - See instructions Activity Restrictions/Add. Instructions Additional Instructions/Restrictions: *Monitor Temp, Over the counter Motrin or Tylenol as directed/as needed Tylenol every 4 hours and Motrin every 6 hours (as long as your family doctor has told you that you can take it) for fever or pain. and straight to ER if unable to lower temp less than 101.0 after medication given *Warm salt water gargles may help to soothe the throat *Throat Lozenges? *Warm fluids like tea with honey may help to soothe the throat? *Sleep elevated *Humidifier/Vaporizer *Flonase 2 sprays in each nostril daily but be aware that it may take 2-3 days before you notice improvement *Bromfed may cause drowsiness. Know how it effects you (your child) before dri elizabeth, caring for small child, or sending your child to school. Not other antihistamines/allergy medications while taking bromfed Your throat swab was sent for culture. Those results are typically sent to your primary care. Be sure to follow up in 2-3 days with your family doctor/primary care physician if no improvement so they can review those result and treat if necessary. If you don?t have a primary care doctor, I recommend you get one but in the mean time, you will have to return to a walk in clinic Follow up IMMEDIATELY for new or worsening symptoms or no Noticeable improvement over the next 48-72 hours. 911 for difficulty breathing or swallowing You were tested for today for COVID19 your test result should be back in the next 24hours, you may check your results on the [facility] [employer] [facility] Clinical Impressions Clinical Impression: Viral syndrome Instructions Patient Instructions: DI for Viral Upper Respiratory Infection -- Adult Discharge ED Provider: Pham Dixon [facility] [place] General Stated complaint: Sore throat,BLISS,Earache Mode of Arrival: Ambulatory Source of Information: Patient Limitations: No Limitations Time Seen by Provider: 08/16/23 18:08 Description of Symptoms (Recalled from Triage Doc. by RN): PATIENT C/O SORE THROAT, HEADACHE, EAR ACHE AND STIFF NECK SINCE YESTERDAY HEENT Symptoms (Recalled from RN notes): Yes Resp Symptoms (Recalled from RN notes): No Skin Symptoms (Recalled from RN notes): No MS Symptoms (Recalled from RN notes): No Functional Status (Recalled from RN notes): WNL History of Present Illness Provider Complaint: Patient states that yesterday she started with sore throat, bilateral ear pain and pressure, sore scratchy throat and feeling achy States that sister tested positive for COVID and she wanted to get tested for COVID and strep throat Related Data Previous Rx's Medication Instructions Recorded tizanidine 2 mg tablet 4 mg (2 x 2 mg) PO HS 09/28/22 headaches/migraines 90 days #180 tabs trazodone 50 mg tablet 100 mg (2 x 50 mg) PO QHS sleep 90 09/28/22 days #180 tabs Allergies Allergy/AdvReac Type Severity Reaction Status Date / Time duloxetine [From CYMBALTA] Allergy Unknown Verified 05/23/23 15:11 hydroxychloroquine Allergy Unknown Verified 05/23/23 15:11 [From PLAQUENIL] morphine [MORPHINE] Allergy Unknown Verified 05/23/23 15:11 Sulfa (Sulfonamide Allergy Unknown Verified 05/23/23 15:11 Antibiotics) [SULFA (SULFONAMIDE ANTIBIOTICS)] Worker's Comp Is this a Worker's Comp case?: No [facility] Disclaimer: The information contained in this section may have been updated after the patient was seen, as this information can be updated by other users. 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 caffeine: Yes ROS Obtained: Yes All systems reviewed & no additional complaints except as documented and Yes Systems reviewed as appropriate & no additional complaints except as documented Constitutional Constitutional: Reports system reviewed and no additional complaints, except as documented, Reports as per HPI and Reports body ache Eyes Eyes: Reports system reviewed and no additional complaints, except as documented and Reports as per HPI ENT Ears, Nose, Mouth, and Throat: Reports system reviewed and no additional complaints, except as documented, Reports as per HPI, Reports otalgia, Reports nasal congestion, Reports nasal discharge and Reports sore throat Cardiovascular Cardiovascular: Reports system reviewed and no additional complaints, except as documented and Reports as per HPI Respiratory Respiratory: Reports system reviewed and no additional complaints, except as documented, Reports as per HPI and Reports cough Gastrointestinal Gastrointestingal: Reports system reviewed and no additional complaints, except as documented and as per HPI Physical Exam General General appearance: alert and in no apparent distress ENT ENT exam: Present mucous membranes moist Expanded ENT Exam TM/Canal exam: Bilateral TM: bulging (clear) Nose exam: Absent sinus tenderness Throat exam: Present other (mild pharyngeal erythema noted) Respiratory Respiratory exam: Present normal lung sounds bilaterally; Absent respiratory distress or wheezes Cardiovascular Cardiovascular exam: Present regular rate, normal rhythm and normal heart sounds Abdominal Exam Abdominal exam: Present soft and normal bowel sounds; Absent distention or tenderness Neurological Exam Neurological exam: Present alert, oriented X3 and normal gait Medical Decision Making Donny Inquiry Pt receiving controlled substance: No Donny was queried for this patient: No Vital Signs: 08/16/23 17:30 08/16/23 18:04 Temperature 98.6 F 98.6 F Temperature Source Oral Pulse Rate 65 Pulse Rate [Left Brachial] 65 Respiratory Rate 18 18 Blood Pressure 128/70 Blood Pressure [Left Arm] 128/70 Blood Pressure Mean [Left Arm] 89 Blood Pressure Source [Left Arm] Automatic Cuff Blood Pressure Position [Left Arm] Sitting 02 Sat by Pulse Oximetry 100 Oxygen Delivery Method Room Air Lab Data Lab results reviewed: Yes I reviewed the patient's lab results. Lab Results 08/16/23 17:40: Strep Scn Rapid Clinic Negative Orders (Tests/Meds): ORDERS Category Date Time Status Covid-19 Nasal PCR ([facility]) Routine Lab 08/16/23 17:45 Received Strep Screen Confirmation Stat Micro 08/16/23 17:40 Received
== END 2023-08-16 18:16 | disposition home or self-care (01) ==
PROVIDERS: Emergency Provider Nurse Practitioner; PCP Internal Medicine
DX: R07.0 Pain in throat (principal); H92.03 Otalgia, bilateral
CPT/HCPCS: 87635; 87880; 99212; 99213; G0463

== ENCOUNTER 2023-09-05 13:57 | Emergency (ER) | payer OTHER, SELFPAY ==
[2023-09-05 13:59] VITALS: BP 126/68; PULSE 69; RESP 13; TEMP 36.6; O2SAT 98; BMI 22.4
--- NOTE | 2023-09-05 14:20 | ED_ITS ---
Discharge Plan Disposition Patient Disposition: Home, Self-Care Condition: Good Prescriptions Prescriptions: New wdfwbahl-iafucszggg-undpoxqzk 3.5-400-10,000 db-bftp-hcyu/g ointment 1 applic ophthalmic (eye) BID Qty: 3.5 0RF No Action tizanidine 2 mg tablet 4 mg PO HS 90 Days Qty: 180 3RF trazodone 50 mg tablet 100 mg PO QHS 90 Days Qty: 180 3RF Rx Instructions: 2 hours before bedtime Referrals Follow up/Referrals: Abelardo Martin DO [Primary Care Provider] - See instructions Activity Restrictions/Add. Instructions Additional Instructions/Restrictions: Please follow-up with my eye doctor here in [place] if your symptoms do not resolve or return to the ER as needed. Clinical Impressions Clinical Impression: Eye irritation Discharge ED Provider: Dionicio Morris Adult HPI <MONTRELL Joseph - Last Filed: 09/05/23 14:28> General Chief complaint: Eye Problems Stated complaint: left eye pain Time Seen by Provider: 09/05/23 14:06 Mode of Arrival: Ambulatory Source of Information: Patient Limitations: No Limitations Description of Symptoms (Recalled from ER Triage Doc. by RN): pt presents to ED with c/o left eye irritation. symptoms began today. History of Present Illness HPI narrative: Patient presents for evaluation of left eye irritation. Patient states that she was getting ready this morning and felt a foreign body sensation or irritation in her left eye. She was unable to find anything so came to the emergency department for evaluation. Related Data Previous Rx's Medication Instructions Recorded tizanidine 2 mg tablet 4 mg (2 x 2 mg) PO HS 09/28/22 headaches/migraines 90 days #180 tabs trazodone 50 mg tablet 100 mg (2 x 50 mg) PO QHS sleep 90 09/28/22 days #180 tabs xshemhge-affqmyojnk-yqqufpgr 3.5 1 applic ophthalmic (eye) BID #3.5 09/05/23 mg-400 unit-10,000 unit/gram eye grams oint Allergies Allergy/AdvReac Type Severity Reaction Status Date / Time duloxetine [From CYMBALTA] Allergy Unknown Verified 05/23/23 15:11 hydroxychloroquine Allergy Unknown Verified 05/23/23 15:11 [From PLAQUENIL] morphine [MORPHINE] Allergy Unknown Verified 05/23/23 15:11 Sulfa (Sulfonamide Allergy Unknown Verified 05/23/23 15:11 Antibiotics) [SULFA (SULFONAMIDE ANTIBIOTICS)] [facility] <MONTRELL Joseph - Last Filed: 09/05/23 14:28> [facility] Disclaimer: The information contained in this section may have been updated after the patient was seen, as this information can be updated by other users. 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 caffeine: Yes <MONTRELL Joseph - Last Filed: 09/05/23 14:28> ROS Obtained: Yes Systems reviewed as appropriate & no additional complaints except as documented Physical Exam <MONTRELL Joseph - Last Filed: 09/05/23 14:28> General General appearance: alert and in no apparent distress Eye Eye exam: Present PERRL, EOMI and conjunctival redness; Absent discharge, periorbital swelling or periorbital tenderness Respiratory Respiratory exam: Present normal lung sounds bilaterally Cardiovascular Cardiovascular exam: Present regular rate and normal rhythm Neurological Exam Neurological exam: Present alert, oriented X3 and CN II-XII intact Medical Decision Making <MONTRELL Joseph - Last Filed: 09/05/23 14:28> Donny Inquiry Pt receiving controlled substance: No Vital Signs: 09/05/23 13:59 09/05/23 14:23 Temperature 97.9 F 97.7 F Temperature Source Oral Oral Pulse Rate 57 L Pulse Rate [Left Radial] 69 Respiratory Rate 13 18 Blood Pressure 126/68 Blood Pressure [Right Arm] 126/68 Blood Pressure Mean [Right Arm] 87 02 Sat by Pulse Oximetry 98 Oxygen Delivery Method Room Air Room Air Medical Decision Narrative: In summary patient is a 3-year-old female who presents to the emergency department for evaluation of eye irritation. Patient is hemodynamically stable upon arrival, afebrile. Initial physical exam is unremarkable other than conjunctival redness with no periorbital edema or erythema. Differential diagnosis includes chemical irritation versus foreign body irritation versus corneal abrasion. Initial workup will be conducted with topical ophthalmic anesthetic and fluorescein staining. Initial interventions include topical anesthetic. Initial workup reviewed by me shows patient has no foreign body visible under fluorescein stain cornea is intact with no abrasions or foreign body noted. Lid eversion notes no palpebral conjunctival irritation or stye. Upon repeat evaluation feels better after numbing. Given this patient is appropriate for discharge with return instructions if sensation recurs vision changes and also referred to local intelligence research specialist if sensation continues. <Dionicio Morris MD - Last Filed: 09/05/23 17:51> Vital Signs: 09/05/23 13:59 09/05/23 14:23 Temperature 97.9 F 97.7 F Temperature Source Oral Oral Pulse Rate 57 L Pulse Rate [Left Radial] 69 Respiratory Rate 13 18 Blood Pressure 126/68 Blood Pressure [Right Arm] 126/68 Blood Pressure Mean [Right Arm] 87 02 Sat by Pulse Oximetry 98 Oxygen Delivery Method Room Air Room Air Medical Decision Narrative: In summary patient is a 3-year-old female who presents to the emergency department for evaluation of eye irritation. Patient is hemodynamically stable upon arrival, afebrile. Initial physical exam is unremarkable other than conjunctival redness with no periorbital edema or erythema. Differential diagnosis includes chemical irritation versus foreign body irritation versus corneal abrasion. Initial workup will be conducted with topical ophthalmic anesthetic and fluorescein staining. Initial interventions include topical anesthetic. Initial workup reviewed by me shows patient has no foreign body visible under fluorescein stain cornea is intact with no abrasions or foreign body noted. Lid eversion notes no palpebral conjunctival irritation or stye. Upon repeat evaluation feels better after numbing. Given this patient is appropriate for discharge with return instructions if sensation recurs vision changes and also referred to local intelligence research specialist if sensation continues. Dionicio Morris MD I was available for consultation. Critical Care <MONTRELL Joseph - Last Filed: 09/05/23 14:28> Critical Care Time Critical Care Time: No
[2023-09-05 14:23] VITALS: BP 126/68; PULSE 57; RESP 18; TEMP 36.5; O2SAT 98
== END 2023-09-05 14:26 | disposition home or self-care (01) ==
PROVIDERS: Emergency Provider Emergency Medicine; PCP Internal Medicine
DX: H53.142 Visual discomfort, left eye (principal)
CPT/HCPCS: 99283

== ENCOUNTER 2024-02-22 08:07 | Emergency (ER) | payer OTHER, SELFPAY ==
--- NOTE | 2024-02-22 08:25 | ED_ITS ---
Discharge Plan Disposition Patient Disposition: Home, Self-Care Condition: Good Prescriptions Prescriptions: New azithromycin [Zithromax] 250 mg tablet 250 mg PO UD DOSE PK Qty: 6 0RF Rx Instructions: Take two (2) tablets today, then one (1) tablet days #2 thru #5 methylprednisolone 4 mg Tablets,Dose Pack 4 mg PO DIRECTED 6 Days Qty: 21 0RF Rx Instructions: Take 1 pack as directed for 6 days vyucnsodqmvstep-ldfdkgmtp-KV [Bromfed DM] 2-30-10 mg/5 mL Syrup 5 ml PO Q6H PRN (Reason: Cough) Qty: 240 0RF Referrals Follow up/Referrals: Abelardo Martin DO [Primary Care Provider] - See instructions Activity Restrictions/Add. Instructions Additional Instructions/Restrictions: Drink plenty of fluids. Take tylenol or ibuprofen for pain or fever. Take the medications as directed. Follow up with your regular doctor. GO TO THE ER FOR ANY WORSENING SYMPTOMS Clinical Impressions Clinical Impression: Bronchitis Sinusitis Qualifiers: Sinusitis location: unspecified location Chronicity: unspecified Qualified Code(s): J32.9 - Chronic sinusitis, unspecified Stand Alone Forms Stand Alone Forms: Work/School Release Instructions Patient Instructions: Sinusitis, DI for Sinusitis Print Language Print Language: Slovak Discharge ED Provider: Doc Lambert [facility] General Stated complaint: sore throat, cough, drainage Time Seen by Provider: 02/22/24 08:25 Related Data Previous Rx's ?Medication ?Instructions ?Recorded azithromycin 250 mg tablet 250 mg PO UD DOSE PK #6 tabs 02/22/24 (Zithromax) supxxqswnyzpzxj-pahjodbqlubcdog-RT 5 ml PO Q6H PRN Cough #240 mL 02/22/24 2 mg-30 mg-10 mg/5 mL oral syrup (Bromfed DM) methylprednisolone 4 mg tablets in 4 mg PO DIRECTED 6 days #21 tabs 02/22/24 a dose pack Allergies Allergy/AdvReac Type Severity Reaction Status Date / Time duloxetine [From CYMBALTA] Allergy Unknown Verified 05/23/23 15:11 hydroxychloroquine Allergy Unknown Verified 05/23/23 15:11 [From PLAQUENIL] morphine [MORPHINE] Allergy Unknown Verified 05/23/23 15:11 Sulfa (Sulfonamide Allergy Unknown Verified 05/23/23 15:11 Antibiotics) [SULFA (SULFONAMIDE ANTIBIOTICS)] [facility] Disclaimer: The information contained in this section may have been updated after the patient was seen, as this information can be updated by other users. 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: No caffeine: Yes ROS Obtained: Yes All systems reviewed & no additional complaints except as documented Constitutional Constitutional: Reports poor appetite Eyes Eyes: Reports system reviewed and no additional complaints, except as documented ENT Ears, Nose, Mouth, and Throat: Reports as per HPI Cardiovascular Cardiovascular: Reports system reviewed and no additional complaints, except as documented and Denies chest pain Respiratory Respiratory: Denies shortness of breath, Reports chest congestion, Reports cough, Denies stridor and Denies wheezing Gastrointestinal Gastrointestingal: Reports system reviewed and no additional complaints, except as documented; Denies abdominal pain, diarrhea or vomiting Musculoskeletal Musculoskeletal: Reports system reviewed and no additional complaints, except as documented and Denies arthralgias Integumentary/Breasts Skin/Breast: Reports system reviewed and no additional complaints, except as documented and Denies rash Neurologic Neurologic: Denies paresthesias Allergic/Immunologic Allergic/Immunologic: Denies wheezing Physical Exam General General appearance: alert and in no apparent distress Head Head exam: atraumatic, normocephalic and normal inspection Eye Eye exam: Present normal appearance, PERRL and EOMI ENT ENT exam: Present normal exam, normal oropharynx, mucous membranes moist, TM's normal bilaterally and normal external ear exam Neck Neck exam: Present normal inspection, full ROM and trachea midline; Absent meningismus or lymphadenopathy Chest Chest inspection: Present normal inspection and symmetric chest wall rise; Absent tenderness Respiratory Respiratory exam: Present normal lung sounds bilaterally; Absent respiratory distress Cardiovascular Cardiovascular exam: Present regular rate and normal rhythm; Absent JVD Abdominal Exam Abdominal exam: Present soft and normal bowel sounds; Absent distention, tenderness or guarding Extremities Exam Extremities exam: Present normal inspection, full ROM and normal capillary refill; Absent calf tenderness Back Exam Back exam: Present normal inspection; Absent tenderness Neurological Exam Neurological exam: Present alert and oriented X3 Psychiatric Psychiatric exam: Present normal affect and normal mood Skin Skin exam: Present warm, dry, intact and normal color Lymphatic Lymphatic Findings: no adenopathy Medical Decision Making Medical Records Medical records reviewed: No I reviewed the patient's medical records. Screening: Per USPSTF and CDC recommendations, given the prevalence of disease in our region, it is our hospital?s policy to screen for HIV and viral Hepatitis for all patients aged 18 and over and those with ongoing risk factors. Donny Inquiry Pt receiving controlled substance: No Lab Data Lab results reviewed: Yes I reviewed the patient's lab results.
[2024-02-22 08:34] VITALS: BP 112/61; PULSE 71; RESP 18; TEMP 37.3; O2SAT 100; BMI 23.6
[2024-02-22 08:45] LABS: UTC Strep Screen (Rapid) Negative (Negative)
[2024-02-22 08:46] LABS: UTC Influenza A Antigen Negative (Negative); UTC Influenza B Antigen Negative (Negative)
[2024-02-22 08:54] VITALS: BP 112/61; PULSE 71; RESP 18; TEMP 37.3
== END 2024-02-22 08:55 | disposition home or self-care (01) ==
PROVIDERS: Emergency Provider Nurse Practitioner Family; PCP Internal Medicine
DX: J40 Bronchitis, not specified as acute or chronic (principal)
CPT/HCPCS: 87804; 87880; 99213; G0381

== ENCOUNTER 2024-05-09 11:29 | Emergency (ER) | payer OTHER, SELFPAY ==
[2024-05-09 11:40] VITALS: BP 114/64; PULSE 89; RESP 18; TEMP 36.9; O2SAT 98; BMI 23.8
[2024-05-09 12:06] LABS: UTC Strep Screen (Rapid) Negative (Negative)
--- NOTE | 2024-05-09 12:13 | ED_ITS ---
Discharge Plan Disposition Patient Disposition: Home, Self-Care Condition: Good Prescriptions Prescriptions: New amoxicillin-pot clavulanate 875-125 mg Tablet 1 tab PO Q12H Qty: 20 0RF mupirocin 2 % ointment 1 applic topical TID 10 Days Qty: 22 0RF Rx Instructions: apply to skin around fingernail left ring finger Referrals Follow up/Referrals: Abelardo Martin DO [Primary Care Provider] - See instructions Activity Restrictions/Add. Instructions Additional Instructions/Restrictions: Soak Finger in warm water and epson salt 3-4 times daily Use topical medication around fingernail as prescribed Oral antibiotics as prescribed *Monitor Temp, Over the counter Motrin or Tylenol as directed/as needed Tylenol every 4 hours and Motrin every 6 hours (as long as your family doctor has told you that you can take it) for fever or pain. and straight to ER if unable to lower temp less than 101.0 after medication given *Warm salt water gargles may help to soothe the throat *Throat Lozenges? *Warm fluids like tea with honey may help to soothe the throat? *Sleep elevated *Humidifier/Vaporizer *Flonase 2 sprays in each nostril daily but be aware that it may take 2-3 days before you notice improvement *Bromfed may cause drowsiness. Know how it effects you (your child) before eric cano, caring for small child, or sending your child to school. Not other antihistamines/allergy medications while taking bromfed Your throat swab was sent for culture. Those results are typically sent to your primary care. Be sure to follow up in 2-3 days with your family doctor/primary care physician if no improvement so they can review those result and treat if necessary. If you don?t have a primary care doctor, I recommend you get one but in the mean time, you will have to return to a walk in clinic Follow up IMMEDIATELY for new or worsening symptoms or no Noticeable improvement over the next 48-72 hours. 911 for difficulty breathing or swallowing Clinical Impressions Clinical Impression: Paronychia Instructions Patient Instructions: Sore Throat, DI for Paronychia, Amoxicillin and Clavulanic Acid Print Language Print Language: Kazakh Discharge ED Provider: Pham Dixon [facility] [place] HPI General Stated complaint: sore throat, headache Mode of Arrival: Ambulatory Source of Information: Patient Limitations: No Limitations Time Seen by Provider: 05/09/24 12:13 Description of Symptoms (Recalled from Triage Doc. by RN): PATIENT C/O REDNESS AND SWELLING AROUND NAILBED TO LEFT RING FINGER X 3 DAYS. PATIENT ALSO C/O SORE THROAT, COUGH, CONGESTION, AND HEADACHE SINCE YESTERDAY HEENT Symptoms (Recalled from RN notes): Yes Resp Symptoms (Recalled from RN notes): Yes Skin Symptoms (Recalled from RN notes): Yes MS Symptoms (Recalled from RN notes): No Functional Status (Recalled from RN notes): WNL History of Present Illness Provider Complaint: Patient states that she has an infection around her fingernail on her left ring finger for several days States that she has tried to get it to open but it is too sore also she has been having sore throat and noticed her throat was looking very red and irritated so she came in Related Data Previous Rx's ?Medication ?Instructions ?Recorded amoxicillin 875 mg-potassium 1 tab PO Q12H #20 tabs 05/09/24 clavulanate 125 mg tablet mupirocin 2 % topical ointment 1 applic topical TID 10 days #22 05/09/24 grams Allergies Allergy/AdvReac Type Severity Reaction Status Date / Time duloxetine (From CYMBALTA) Allergy Unknown Verified 05/23/23 15:11 hydroxychloroquine (From Allergy Unknown Verified 05/23/23 15:11 PLAQUENIL) morphine (MORPHINE) Allergy Unknown Verified 05/23/23 15:11 Sulfa (Sulfonamide Allergy Unknown Verified 05/23/23 15:11 Antibiotics) (SULFA (SULFONAMIDE ANTIBIOTICS)) Worker's Comp Is this a Worker's Comp case?: No [facility] Disclaimer: The information contained in this section may have been updated after the patient was seen, as this information can be updated by other users. 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: No caffeine: Yes Have you lived/traveled outside [place] in past 30 days?: No Contact w/someone who lives/traveled outside [place] past 30 days?: No Exposure to someone with infectious disease in past 14 days?: No Do you have a fever (greater than 100.4 F or 38 C)?: No Have you tested positive for COVID-19: No Exposed to someone with COVID-19 in past 14 days?: No Do you have a sore throat?: No Do you have a cough?: No Do you have any weakness?: No Do you have any diarrhea?: No Are you experiencing any unusual bleeding?: No Do you have any muscle aches/pain?: No Do you have any abdominal pain?: No Are you experiencing loss of taste or smell?: No ROS Obtained: Yes All systems reviewed & no additional complaints except as documented and Yes Systems reviewed as appropriate & no additional complaints except as documented Constitutional Constitutional: Reports system reviewed and no additional complaints, except as documented and Reports as per HPI ENT Ears, Nose, Mouth, and Throat: Reports system reviewed and no additional complaints, except as documented, Reports as per HPI and Reports sore throat Cardiovascular Cardiovascular: Reports system reviewed and no additional complaints, except as documented and Reports as per HPI Respiratory Respiratory: Reports system reviewed and no additional complaints, except as documented and Reports as per HPI Gastrointestinal Gastrointestingal: Reports system reviewed and no additional complaints, except as documented and as per HPI Musculoskeletal Musculoskeletal: Reports system reviewed and no additional complaints, except as documented and Reports as per HPI Integumentary/Breasts Skin/Breast: Reports system reviewed and no additional complaints, except as documented, Reports as per HPI and Reports other (skin around fingernail left ring finger infected) Physical Exam General General appearance: alert and in no apparent distress ENT ENT exam: Present mucous membranes moist Expanded ENT Exam Throat exam: Present other (Pharyngeal erythema noted with PND) Respiratory Respiratory exam: Present normal lung sounds bilaterally; Absent respiratory distress or wheezes Cardiovascular Cardiovascular exam: Present regular rate, normal rhythm and normal heart sounds Neurological Exam Neurological exam: Present alert, oriented X3 and normal gait Skin Skin exam: Present other (redness and mild swelling noted to skin around fingernail on left ring finger appears like paronychia ) Medical Decision Making Medical Records Screening: Per USPSTF and CDC recommendations, given the prevalence of disease in our region, it is our hospital?s policy to screen for HIV and viral Hepatitis for all patients aged 18 and over and those with ongoing risk factors. Donny Inquiry Pt receiving controlled substance: No Donny was queried for this patient: No Vital Signs: 05/09/24 11:40 Temperature 98.5 F Temperature Source Oral Pulse Rate [Left Brachial] 89 Respiratory Rate 18 Blood Pressure [Left Arm] 114/64 Blood Pressure Mean [Left Arm] 80 Blood Pressure Source [Left Arm] Automatic Cuff Blood Pressure Position [Left Arm] Sitting 02 Sat by Pulse Oximetry 98 Oxygen Delivery Method Room Air Lab Data Lab results reviewed: Yes I reviewed the patient's lab results. Lab Results 05/09/24 11:44: Strep Scn Rapid Clinic Negative Orders (Tests/Meds): ORDERS Category Date Time Status Strep Screen Confirmation Stat Micro 05/09/24 11:44 Received
[2024-05-09 12:21] VITALS: BP 114/64; PULSE 89; RESP 18; TEMP 36.9; O2SAT 98
== END 2024-05-09 12:24 | disposition home or self-care (01) ==
PROVIDERS: Emergency Provider Nurse Practitioner; PCP Internal Medicine
DX: L03.012 Cellulitis of left finger (principal)
CPT/HCPCS: 87880; 99212; G0381